=== PATIENT | male | born 1965 | race African-American/Black ===

== ENCOUNTER 2016-10-14 17:54 | Inpatient (IN) ==
[2016-10-14] MEDS ORDERED: Ipratropium/Albuterol Neb 3 ML IH ONE (18:00)
[2016-10-14] MEDS ORDERED: predniSONE 20 MG TABLET PO ONE (18:01)
--- NOTE | 2016-10-14 18:02 | Emergency Department Note ---
Disposition Clinical Impression: New onset of congestive heart failure, Elevated troponin Pulmonary edema Qualifiers: Chronicity: acute Qualified Code(s): J81.0 - Acute pulmonary edema Disposition: Admitted As Inpatient Condition: Fair Time of Disposition: 19:55 SOB HPI - General Chief Complaint: ED Dizziness Stated Complaint: dizzy Time Seen by Provider: 10/14/16 17:58 Source: patient Mode of arrival: ambulatory Limitations: no limitations Nursing Notes Reviewed: Yes Vital Signs Reviewed: Yes - History of Present Illness Patient is a 51-year-old male with reported no past medical history. He presents today due to shortness of breath and lightheadedness. Patient was here in the hospital, walking and felt lightheaded. He states that he did not lose consciousness, did not fall or sustain any injuries. He denies any chest pain but admits to shortness of breath. Denies any nausea, vomiting, fevers, abdominal pain. Denies any history of COPD or CHF. He denies being on any prescription medications. States that he hasn't been to the doctor in 4-5 years. - Related Data Home Medications Medication Instructions Recorded Confirmed Guaifenesin/Ephedrine HCl 1 each PO Q4H 10/14/16 10/14/16 [Primatene Asthma Tablet] Allergies Allergy/AdvReac Type Severity Reaction Status Date / Time No Known Allergies Allergy Verified 10/14/16 17:56 Constitutional: Denies: fever Cardiovascular: Reports: dyspnea on exertion. Denies: chest pain, palpitations Respiratory: Reports: dyspnea, wheezes. Denies: cough, hemoptysis Gastrointestinal: Denies: abdominal pain, nausea, vomiting, diarrhea Genitourinary: Denies: urgency, dysuria Integumentary: Denies: rash Past Medical History - Past Medical History Attestation: Yes The following information was validated with the patient. Medical history: Reports: asthma - Social History Smoking Status: Current every day smoker Alcohol use: Reports: none Drug use: Reports: none Physical Exam - General Limitations: no limitations General appearance: alert, in no apparent distress - Head Head exam: atraumatic, normocephalic, normal inspection - Eye Eye exam: Present: normal appearance, PERRL, EOMI - ENT ENT exam: normal exam, normal oropharynx, mucous membranes moist - Neck Neck exam: Present: full ROM, trachea midline, other (JVD) - Chest Chest inspection: Present: normal inspection, symmetric chest wall rise - Respiratory Respiratory exam: Present: wheezes (Mild wheeze in bilateral lower lobes, decreased aeration in right lower lobe) - Cardiovascular Cardiovascular exam: Present: normal rhythm, tachycardia, normal heart sounds - Extremities Exam Extremities exam: Present: normal inspection, full ROM. Absent: tenderness, pedal edema - Neurological Exam Neurological exam: Present: alert, oriented X3 - Psychiatric Psychiatric exam: Present: normal affect, normal mood - Skin Skin exam: Present: warm, dry, intact, normal color Course Course Narrative: Patient was tachycardic, hypertensive on presentation. Oxygen saturation was 95 % on room air. He had wheezing in bilateral lower lobes with decreased aeration in right lower lobe. 19:48 Chest x-ray shows likely developing pulmonary edema. Troponin elevated at 0.09. Aspirin given. BNP elevated at 1300. We will start the patient on nitroglycerrin drip at 50 mcg/min and give sublingual nitroglycerin. Discussed results with the patient and he was agreeable with admission. Consent for new onset CHF. Chest X-Ray 10/14/16 17:59 IMPRESSION: In this patient with cardiomegaly, there is asymmetric perihilar airspace change on the right. This could represent developing pulmonary edema. Underlying pneumonitis considered less likely No other significant findings. D/ / Ronen Bello MD / Ronen Bello MD Interpreting Provider: Ronen Bello MD Vital Signs Temperature 98.3 F 10/14/16 17:55 Pulse Rate 105 10/14/16 17:55 Respiratory Rate 18 10/14/16 17:55 Blood Pressure 158/117 10/14/16 17:55 O2 Sat by Pulse Oximetry 95 10/14/16 17:55 Temperature 98.3 F 10/14/16 17:55 Pulse Rate 110 10/14/16 22:02 Respiratory Rate 18 10/14/16 22:02 Blood Pressure 153/116 10/14/16 22:02 O2 Sat by Pulse Oximetry 94 10/14/16 22:02 Oxygen Delivery Oxygen Delivery Nasal Cannula Shortness of Breath/Dyspnea - [facility] Narrative Medical decision making narrative: Patient was tachycardic, hypertensive on presentation. Oxygen saturation was 95 % on room air. He had wheezing in bilateral lower lobes with decreased aeration in right lower lobe. 19:48 Chest x-ray shows likely developing pulmonary edema. Troponin elevated at 0.09. Aspirin given. BNP elevated at 1300. We will start the patient on nitroglycerrin drip at 50 mcg/min and give sublingual nitroglycerin. Discussed results with the patient and he was agreeable with admission. Consent for new onset CHF. - Medical Records Medical records reviewed: Yes I reviewed the patient's medical records. - Lab Data Lab results reviewed: Yes I reviewed the patient's lab results. Result diagrams: 10/14/16 18:00 10/14/16 18:00 Lab Results 10/14/16 10/14/16 10/14/16 Range/Units 18:00 18:00 18:00 WBC 9.6 (4.3-11.1) K/mcL RBC 4.73 (4.19-5.50) M/mcL Hgb 12.7 L (12.9-16.9) g/dL Hct 40.7 (37.5-50.1) % MCV 86.0 (83.0-100.0) fL MCH 26.8 L (28.0-33.3) pg MCHC 31.2 L (31.6-35.5) g/dL RDW 14.5 (11.5-14.5) % Plt Count 336 (140-400) K/mcL MPV 9.4 (9.4-12.4) fL Immature Gran % 0.9 (0-4) % Seg Neutrophils % 61.0 % Lymphocytes % 28.8 % Monocytes % 7.7 % Eosinophils % 0.8 % Basophils % 0.8 % Neutrophils # 5.9 (1.6-8.9) K/mcL Lymphocytes # 2.8 (0.6-4.6) K/mcL Monocytes # 0.7 (0.0-1.3) K/mcL Eosinophils # 0.1 (0.0-0.6) K/mcL Basophils # 0.1 (0.0-0.2) K/mcL Nucleated RBCs/100 WBC 0.2 H (0) /100 WBC Sodium 135 L (136-145) mEq/L Potassium 4.3 (3.5-4.5) mEq/L Chloride 101 (98-109) mEq/L Carbon Dioxide 15 L (19-29) mEq/L BUN 21 (8-26) mg/dL Creatinine 1.16 (0.72-1.25) mg/dL Est GFR ( Amer) > 60 (> 60) Est GFR (Non-Af Amer) > 60 (> 60) BUN/Creatinine Ratio 18 (6-26) Glucose 61 L (70-99) mg/dL POC Glucose (58-89) Calculated Osmolality 281 (280-300) Calcium 8.9 (8.6-10.8) mg/dL Troponin I 0.07 H* (0-0.03) ng/mL B-Natriuretic Peptide (0-100) pg/mL 10/14/16 10/14/16 Range/Units 18:00 18:11 WBC (4.3-11.1) K/mcL RBC (4.19-5.50) M/mcL Hgb (12.9-16.9) g/dL Hct (37.5-50.1) % MCV (83.0-100.0) fL MCH (28.0-33.3) pg MCHC (31.6-35.5) g/dL RDW (11.5-14.5) % Plt Count (140-400) K/mcL MPV (9.4-12.4) fL Immature Gran % (0-4) % Seg Neutrophils % % Lymphocytes % % Monocytes % % Eosinophils % % Basophils % % Neutrophils # (1.6-8.9) K/mcL Lymphocytes # (0.6-4.6) K/mcL Monocytes # (0.0-1.3) K/mcL Eosinophils # (0.0-0.6) K/mcL Basophils # (0.0-0.2) K/mcL Nucleated RBCs/100 WBC (0) /100 WBC Sodium (136-145) mEq/L Potassium (3.5-4.5) mEq/L Chloride (98-109) mEq/L Carbon Dioxide (19-29) mEq/L BUN (8-26) mg/dL Creatinine (0.72-1.25) mg/dL Est GFR ( Amer) (> 60) Est GFR (Non-Af Amer) (> 60) BUN/Creatinine Ratio (6-26) Glucose (70-99) mg/dL POC Glucose 80 (58-89) Calculated Osmolality (280-300) Calcium (8.6-10.8) mg/dL Troponin I (0-0.03) ng/mL B-Natriuretic Peptide 1393 H (0-100) pg/mL - Radiology Data Radiology results reviewed: Yes I reviewed the patient's radiology results. Chest X-Ray 10/14/16 17:59 IMPRESSION: In this patient with cardiomegaly, there is asymmetric perihilar airspace change on the right. This could represent developing pulmonary edema. Underlying pneumonitis considered less likely No other significant findings. D/ / Ronen Bello MD / Ronen Bello MD Interpreting Provider: Ronen Bello MD - EKG Data EKG attestation: Yes I reviewed and interpreted this EKG. EKG results narrative: 10/14/2016 at 17:48. Sinus tachycardia. Rate 114. UT interval 173. QRS 102. QTC 413. Normal axis. No acute ST elevation or depression. No previous EKG for comparison. S.B.A.R. - Eliza.Joanna Situation: Demographics, MOA Background: Presenting Complaint, Relevant PMH, Meds, & Allergies Assessment: Vital Signs, Course and respsone to treatment, Exam Concerns, Patient/Family Expectation, Pertinant Lab Results, Outstanding Labs Recommendation: Barrier(s) to disposition, Recommendation based on pending studies, treatments, or consults S.[email or web address].[email or web address] Report Given to: Dr. Rubin Whiting Repor Time: 20:36 Attestation Statement - Attestation Attestation: I examined this patient and my medical decision-making was reviewed with the Resident Physician. I agree with the documented findings, disposition and treatment plan as described except to the extent set forth below. Hypertensive with rales and wheezing t/o both lungs, significant JVD on exam, no peripheral edema. C/O orthopnea and PERRY, no CP. Pulmonary congestion on CXR with elevated BNP, dx new-onset HF, most likely hypertensive in origin. Nitro titrated for afterload reduction and BP control, DBP down to 100 on 100 mcg/ min. Diuresed after afterload reduction per request of hospitalist.
[2016-10-14 18:16] LABS: Basophils # 0.1 K/mcL (0.0-0.2); Basophils % 0.8 %; Eosinophils # 0.1 K/mcL (0.0-0.6); Eosinophils % 0.8 %; Hematocrit 40.7 % (37.5-50.1); Hemoglobin 12.7 g/dL (12.9-16.9); Immature Granulocytes % 0.9 % (0-4); Lymphocytes # 2.8 K/mcL (0.6-4.6); Lymphocytes % 28.8 %; Mean Corpuscular HGB Conc 31.2 g/dL (31.6-35.5); Mean Corpuscular Hemoglobin 26.8 pg (28.0-33.3); Mean Platelet Volume 9.4 fL (9.4-12.4); Monocytes # 0.7 K/mcL (0.0-1.3); Monocytes % 7.7 %; Neutrophils # 5.9 K/mcL (1.6-8.9); Nucleated Red Blood Cells 0.2 /100 WBC (0); Platelet Count 336 K/mcL (140-400); Red Blood Count 4.73 M/mcL (4.19-5.50); Red Cell Distribution Width 14.5 % (11.5-14.5)
[2016-10-14 18:29] LABS: BUN/Creatinine Ratio 18 (6-26); Blood Urea Nitrogen 21 mg/dL (8-26); Calcium 8.9 mg/dL (8.6-10.8); Carbon Dioxide 15 mEq/L (19-29); Chloride 101 mEq/L (98-109); Glucose 61 mg/dL (70-99); Osmolality,Calculated 281 (280-300); Potassium 4.3 mEq/L (3.5-4.5); Sodium 135 mEq/L (136-145); eGFR For African Americans > 60 (> 60); eGFR For Non-African Americans > 60 (> 60)
[2016-10-14] MEDS ORDERED: Nitroglycerin 0.4 MG TAB.SUBL SL PRN (19:43)
[2016-10-14] MEDS ORDERED: Nitroglycerin 25 MG/250 ML INFUS..BTL IVC SCH (19:45)
[2016-10-14] MEDS ORDERED: Furosemide 40 MG/4 ML VIAL IVP ONE (20:18)
[2016-10-14] MEDS: Nitroglycerin 25 MG/250 ML INFUS..BTL IVC SCH (20:25)
[2016-10-14] MEDS ORDERED: Aspirin 81 MG TAB.CHEW PO ONE (22:52)
[2016-10-14] MEDS ORDERED: *HR* Morphine 2 MG/ML SYRINGE IVP PRN (22:52)
[2016-10-14] MEDS ORDERED: Naloxone 0.4 MG/ML INJ IVP PRN (22:52)
[2016-10-14] MEDS ORDERED: Benzonatate 100 MG CAPSULE PO PRN (22:52)
[2016-10-14] MEDS ORDERED: *HR* Metoprolol 5 MG/5 ML VIAL IVP PRN (22:52)
[2016-10-14] MEDS ORDERED: Acetaminophen 325 MG TABLET PO PRN (22:52)
[2016-10-14] MEDS ORDERED: Albuterol 2.5 MG/3 ML NEBULIZER IH PRN (22:52)
[2016-10-14] MEDS ORDERED: *HR* Promethazine 25 MG/ML VIAL IVP PRN (22:52)
[2016-10-14] MEDS ORDERED: *HR* OxyCODONE Immed Rel 5 MG TABLET PO PRN (22:52)
--- NOTE | 2016-10-14 23:15 | Internal Med History&Physical ---
Date of Encounter: 10/14/16 Time of Encounter: 23:00 Assessment and Plan (1) Acute respiratory failure with hypoxia Current visit: Yes Status: Acute . (2) Acute pulmonary edema with congestive heart failure Current visit: Yes Status: Acute (3) Congestive heart failure, unspecified Current visit: Yes Status: Acute . Qualifiers: Congestive heart failure type: unspecified congestive heart failure type Congestive heart failure chronicity: acute Qualified Code(s): I50.9 - Heart failure, unspecified (4) Unspecified hypertensive heart disease with heart failure Current visit: Yes Status: Acute . (5) Hypertensive urgency Current visit: Yes Status: Acute . (6) SIRS without infection with organ dysfunction Current visit: Yes Status: Acute . (7) Elevated troponin I measurement Current visit: Yes Status: Acute . (8) Non-ST elevation myocardial infarction (NSTEMI) due to mismatch of myocardial oxygen supply and demand Current visit: Yes Status: Acute . (9) Nicotine dependence with nicotine-induced disorder Current visit: Yes Status: Acute . Qualifiers: Nicotine product type: cigarettes Qualified Code(s): F17.219 - Nicotine dependence, cigarettes, with unspecified nicotine-induced disorders Internal Medicine - H&P: HPI Chief complaint: Dizziness. Difficulty breathing. Admitted From: Emergency Dept Plans for Post Hospital Care: Home History of present illness: Mr. Mccray is a 51 year old male is admitted to [facility] through the emergency department he presented with complaints of intractable dizziness and shortness of breath. The patient presents with no specified past medical history. He was in the hospital visiting another individual when he began to feel light headed if he were about to lose consciousness. He did not lose consciousness but he did and had to sit down to collect himself. He denied any associated chest pain but admitted that the shortness of breath was present with and without activity. Dyspnea indeed seem worse with exertion. Wheezes were noted. Denied any nausea vomiting fevers chills abdominal pain. Denied any diagnoses given out of history of COPD or CHF. Denies any ongoing prescriptions. Reports some 5 or more years since his last physical examination and physician visit. He does acknowledge a history of asthma. Indeed when he began to feel short of air he purchased [id number] Primatene asthma tablets (guaifenesin/ephedrine) to address this but this did not help but seemed to worsen symptoms. He does acknowledge long smoking history denies alcohol or recreational drug Use or dependency. Findings in the ED: Temperature 98.3 pulse 110 respirations 18 BP 158/117. O2 saturation 95% at 2 L per nasal cannula. WBC 9.6 hemoglobin 12.7 platelets 336,000. MCH 26.8 MCHC 31.2. Differential normal. Metabolic panel normal except sodium 135. Carbon dioxide 15. Glucose 61 with osmolality 281. BUN 21 creatinine 1.16. Troponin 0.07. BNP 1393. Portable chest x-ray demonstrated cardiomegaly. Asymmetric , bilateral perihilar airspace changes on the right greater than left. Findings could represent developing pulmonary edema. Underlying pneumonitis considered less likely. No other significant findings. EKG sinus tachycardia. No ischemic changes. Preliminary impression suggests acute hypertensive urgency/emergencyin patient presenting with evidence of pathologic cardiomegaly likely secondary to hypertensive heart disease and presenting acute heart failure. Demand ischemia with elevated troponin and BNP elevations are apparent. Suspect underlying CAD. R/O ACS/UA/PE/Aortic dissection- aneurysm. Resting hypoxemia consistent with acute on chronic hypoxic respiratory failure in the setting. Suspect underlying COPD with acute exacerbation. Systemic inflammatory response syndrome criteria met at the time of admission. The patient presents risk for further clinical decline. Workup and treatment will proceed comprehensively. The patient was visited and interviewed and examined. Cumulative laboratory and radiographic data base will be considered and discussed. Pertinent ancillary medical records including ECW and PCI documentation when available was reviewed and considered. Given the patient's presenting concerns, past medical history, clinical findings and symptoms, he is admitted at this time will undergo further evaluation and disposition. Orders were written as per Computerized physician work order detailer system.......................................................................... .................... Consultative opinions will be sought as clinical circumstances justify. Pain management needs will be addressed. Intravenous nitroglycerin drip initiated in the ED for afterload reduction and blood pressure control. Gentle diuresis. Total fluid restriction per 24hrs. ANNAMARIA diet restriction. Laboratory /radiographic data base will be updated as appropriate. Studies include: pt/inr, aptt, ddimer, cpk, UA, UDS, cardiac injury panel, BNP, metabolic and hematologic panel, magnesium, phosphorus, ionized calcium, thyroid panel, lipid profile, A1c, C-peptide, CRP, sedimentation rate, respiratory infection profile, respiratory virus panel, blood gas, lactic acid, serologies, etc. Precautions: Aspiration, fall, delirium protocol/surveillance initiated. Telemetry with continuous hemodynamic monitoring and pulse oximetry initiated. Orthostatic vital signs. Empiric antibiotic coverage: Intravenous Levaquin pending culture data. Special studies: CT/CTA chest, chest x-ray, telemetry, EKG, 2D echo. Pulmonary toilet: Incentive spirometry, aerosol bronchodilator, mucolytic, antitussive, supplemental oxygen. Corticosteroid therapy. CPAP/BiPAP supplemental oxygen delivery. Aerosol Mucomyst therapy. Fluid and electrolyte repletion efforts will proceed. Careful attention to fluid balance and renal recovery will be emphasized. Avoidance of nephrotoxic exposure and adverse drug drug interaction in the setting of impaired renal function will be monitored closely. Acute coronary syndrome protocol/surveillance initiated. Acute Heart failure protocols/surveillance initiated. Therapeutic Lovenox 1 mg/kg every 12 hours subcutaneous. DVT and PUD prophylaxis initiated: PPI therapy, intermittent pneumatic cuffs. Early ambulation will be encouraged. Immunization updates recommended. Influenza and pneumococcal vaccinations as part of ongoing preventative healthcare recommendations strongly recommended. Smoking cessation counseling briefly addressed. Patient accepts nicotine substitution during this admission.. Advanced care directive discussion briefly addressed. Patient does not declare any healthcare restrictions at this time. Cardiovascular risk appraisal and cardiovascular risk reduction efforts will be emphasized. Physical /occupational therapy may be counseled to evaluate patient's functional capacity and progressive mobility if circumstances justify. Nutrition/dietary education- counseling may be considered as circumstances justify. Outpatient medication schedules will be reviewed, confirmed and facilitated as appropriate. Reconciliation of home treatments including adjustments, substitutions and reintroduction into the treatment regimen will address necessary maintenance therapies for chronic pre-existing medical conditions. Plan of care has been reviewed and discussed in detail with the patient. Questions addressed. Hospital course dictated by clinical findings, treatment response and potential consultative interventions. Patient is a risk for further acute clinical decline due to his findings, chief complaints and apparent comorbidities. Condition is serious. Prognosis is guarded. CODE STATUS is full. Past Med Surg Social Fam HX - Past Medical History Source: patient Medical history: asthma, other Psychiatric history: other - Past Surgical History Surgical History: other - Social History Smoking Status: Current every day smoker Alcohol use: none Drug use: none Occupational status: employed Current living situation: Home, With Family Activity Level: Independent ambulation, Mostly sedentary Recent Out of Country Travel Within the Last 8 Weeks: No Exposure or Possible Exposure to Illness During Travel: No - Family History Father Name: charissa mccray Age at : 67 Cause of : heart trouble Hx Family Cardiac Disorders: Yes (CHF, open heart surgery) Hx Family Endocrine Disorder: Yes (DM) Internal Medicine - H&P: Meds Guaifenesin/Ephedrine HCl [Primatene Asthma Tablet] 1 each PO Q4H 10/14/16 [ History] Allergies No Known Allergies Allergy (Verified 10/14/16 17:56) All Systems PM: A 10-system review of systems was performed and is negative for pertinent findings except as documented above in the HPI. Allergies Allergy/AdvReac Type Severity Reaction Status Date / Time No Known Allergies Allergy Verified 10/14/16 17:56 Patient Problems (Last Updated 10/14/16 @ 23:17 by Navneet oHoks MD) Acute pulmonary edema with congestive heart failure (Acute Medical) I50.1 Acute respiratory failure with hypoxia (Acute Medical) J96.01 Congestive heart failure, unspecified (Acute Medical) I50.9 Elevated troponin (Acute Medical) R74.8 Elevated troponin I measurement (Acute Medical) R74.8 Hypertensive urgency (Acute Medical) I16.0 New onset of congestive heart failure (Acute Medical) I50.9 Nicotine dependence with nicotine-induced disorder (Acute Medical) F17.209 Non-ST elevation myocardial infarction (NSTEMI) due to mismatch of myocardial oxygen supply and demand (Acute Medical) I21.4 Pulmonary edema (Acute Medical) J81.1 SIRS without infection with organ dysfunction (Acute Medical) R65.11 Unspecified hypertensive heart disease with heart failure (Acute Medical) I11.0 - Constitutional Constitutional: as per HPI, fatigue, malaise, other, no chills, no fever(s), no night sweats - EENT Eyes: as per HPI, no change in vision, no discharge, no pain, no photophobia Ears: as per HPI, no ear discharge, no ear pain, no tinnitus Nose, mouth and throat: as per HPI, no dysphagia, no nasal discharge, no neck pain, no sore throat - Cardiovascular Cardiovascular ROS IM: as per HPI, dyspnea, dyspnea on exertion, lightheadedness , other, no chest pain, no diaphoresis, no palpitations, no syncope - Respiratory Respiratory: as per HPI, cough, dyspnea, dyspnea on exertion, wheezing, other, no hemoptysis, no excessive phlegm production - Gastrointestinal Gastrointestinal: as per HPI, no abdominal pain, no diarrhea, no hematemesis, no hematochezia, no melena, no nausea, no vomiting - Genitourinary Genitourinary ROS male: as per HPI - Musculoskeletal Musculoskeletal ROS IM: as per HPI, no numbness, no tingling - Integumentary Integumentary IM: as per HPI, no rash, no unusual bruising - Neurological Neurological ROS: as per HPI, no confusion, no convulsions, no focal weakness, no numbness, no tingling, no tremor(s) - Psychiatric Psychiatric: as per HPI - Endocrine Endocrine IM: as per HPI - Hematologic/Lymphatic Hematologic/Lymphatic: as per HPI, no easy bruising - Allergic/Immunologic Allergic/Immunologic: as per HPI - Constitutional Vitals: Temp Pulse Resp BP Pulse Ox 98.3 F 109 20 151/111 96 10/14/16 17:55 10/14/16 22:54 10/14/16 22:54 10/14/16 22:54 10/14/16 22:54 Vital Signs Temp Pulse Resp BP Pulse Ox 10/14/16 22:54 109 20 151/111 96 10/14/16 22:39 15 154/117 10/14/16 22:19 108 22 147/108 96 10/14/16 22:02 110 18 153/116 94 10/14/16 21:37 109 18 153/120 97 10/14/16 20:55 107 18 139/103 97 10/14/16 20:45 109 18 145/120 97 10/14/16 20:04 108 18 153/112 97 10/14/16 18:57 109 18 162/122 95 10/14/16 18:10 18 100 10/14/16 17:55 98.3 F 105 18 158/117 95 Intake and Output 10/14/16 10/14/16 10/14/16 07:59 15:59 23:59 Intake Total 0 / 0 Balance 0 / 0 Intake: IV Fluids 0 / 0 Nitroglycerin 25 mg In 0 / 0 250 ml @ 50 MCG/MIN 30 mls/hr IVC .Q8H20M [facility] Rx #:[id number] Other: Weight 72.575 kg Blood Glucose* 80 Patient Weight 10/14/16 23:59 Weight 72.575 kg General appearance: Present: mild distress, A&O X 3, answers questions appropriately - Head Head exam: Present: atraumatic, normocephalic - Eye Eye exam: Present: EOMI, PERRL, conjuntiva pink, sclera anicteric Pupils: Present: normal accommodation, PERRL - ENT ENT exam: Present: mucous membranes moist, normal oropharynx - Neck Neck exam general surgery: Present: full ROM, supple, trachea midline. Absent: lymphadenopathy - Respiratory Respiratory exam: Present: chest wall tenderness, decreased breath sounds, prolonged expiratory phase, rhonchi, wheezes. Absent: accessory muscle use, CTAB, rales, stridor - Cardiovascular Cardiovascular exam: Present: distant heart sounds, RRR, +S1, +S2, tachycardia. Absent: diastolic murmur, gallop, rubs, systolic murmur - GI/Abdominal GI/Abdominal exam: Present: normal bowel sounds, soft, no peritoneal signs. Absent: distended, tenderness - Extremities Exam Extremities exam: Present: full ROM, warm, radial pulses palpable and symetrical. Absent: calf tenderness, cyanotic, pedal edema - Neurological Exam Neurological exam: Present: alert, CN II-XII intact, oriented X3, no focal deficits. Absent: pronater drift, facial droop, speech deficit - Psychiatric Psychiatric exam: Present: normal affect, normal mood - Skin Skin exam: Present: dry, intact, warm. Absent: petechiae, rash, urticaria, vesicles Internal Med - H&P Results - Labs CBC & Chem 7: 10/14/16 18:00 10/15/16 07:18 Labs: Short CBC 10/14/16 Range/Units 18:00 WBC 9.6 (4.3-11.1) K/mcL Hgb 12.7 L (12.9-16.9) g/dL Hct 40.7 (37.5-50.1) % Plt Count 336 (140-400) K/mcL Neutrophils # 5.9 (1.6-8.9) K/mcL BMP 10/14/16 Range/Units 18:00 Sodium 135 L (136-145) mEq/L Potassium 4.3 (3.5-4.5) mEq/L Chloride 101 (98-109) mEq/L Carbon Dioxide 15 L (19-29) mEq/L BUN 21 (8-26) mg/dL Creatinine 1.16 (0.72-1.25) mg/dL Glucose 61 L (70-99) mg/dL Calcium 8.9 (8.6-10.8) mg/dL Cardiac Enzymes 10/14/16 Range/Units 18:00 Troponin I 0.07 H* (0-0.03) ng/mL Abnormal lab results Hgb 12.7 g/dL (12.9-16.9) L 10/14/16 18:00 MCH 26.8 pg (28.0-33.3) L 10/14/16 18:00 MCHC 31.2 g/dL (31.6-35.5) L 10/14/16 18:00 Nucleated RBCs/100 WBC 0.2 /100 WBC (0) H 10/14/16 18:00 Sodium 135 mEq/L (136-145) L 10/14/16 18:00 Carbon Dioxide 15 mEq/L (19-29) L 10/14/16 18:00 Glucose 61 mg/dL (70-99) L 10/14/16 18:00 Troponin I 0.07 ng/mL (0-0.03) H* 10/14/16 18:00 B-Natriuretic Peptide 1393 pg/mL (0-100) H 10/14/16 18:00 Laboratory Results WBC 9.6 K/mcL (4.3-11.1) 10/14/16 18:00 RBC 4.73 M/mcL (4.19-5.50) 10/14/16 18:00 Hgb 12.7 g/dL (12.9-16.9) L 10/14/16 18:00 Hct 40.7 % (37.5-50.1) 10/14/16 18:00 MCV 86.0 fL (83.0-100.0) 10/14/16 18:00 MCH 26.8 pg (28.0-33.3) L 10/14/16 18:00 MCHC 31.2 g/dL (31.6-35.5) L 10/14/16 18:00 RDW 14.5 % (11.5-14.5) 10/14/16 18:00 Plt Count 336 K/mcL (140-400) 10/14/16 18:00 MPV 9.4 fL (9.4-12.4) 10/14/16 18:00 Immature Gran % 0.9 % (0-4) 10/14/16 18:00 Seg Neutrophils % 61.0 % 10/14/16 18:00 Lymphocytes % 28.8 % 10/14/16 18:00 Monocytes % 7.7 % 10/14/16 18:00 Eosinophils % 0.8 % 10/14/16 18:00 Basophils % 0.8 % 10/14/16 18:00 Neutrophils # 5.9 K/mcL (1.6-8.9) 10/14/16 18:00 Lymphocytes # 2.8 K/mcL (0.6-4.6) 10/14/16 18:00 Monocytes # 0.7 K/mcL (0.0-1.3) 10/14/16 18:00 Eosinophils # 0.1 K/mcL (0.0-0.6) 10/14/16 18:00 Basophils # 0.1 K/mcL (0.0-0.2) 10/14/16 18:00 Nucleated RBCs/100 WBC 0.2 /100 WBC (0) H 10/14/16 18:00 Sodium 135 mEq/L (136-145) L 10/14/16 18:00 Potassium 4.3 mEq/L (3.5-4.5) 10/14/16 18:00 Chloride 101 mEq/L (98-109) 10/14/16 18:00 Carbon Dioxide 15 mEq/L (19-29) L 10/14/16 18:00 BUN 21 mg/dL (8-26) 10/14/16 18:00 Creatinine 1.16 mg/dL (0.72-1.25) 10/14/16 18:00 Est GFR ( Amer) > 60 (> 60) 10/14/16 18:00 Est GFR (Non-Af Amer) > 60 (> 60) 10/14/16 18:00 BUN/Creatinine Ratio 18 (6-26) 10/14/16 18:00 Glucose 61 mg/dL (70-99) L 10/14/16 18:00 POC Glucose 80 (58-89) 10/14/16 18:11 Calculated Osmolality 281 (280-300) 10/14/16 18:00 Calcium 8.9 mg/dL (8.6-10.8) 10/14/16 18:00 Troponin I 0.07 ng/mL (0-0.03) H* 10/14/16 18:00 B-Natriuretic Peptide 1393 pg/mL (0-100) H 10/14/16 18:00 Impressions Chest X-Ray 10/14/16 17:59 IMPRESSION: In this patient with cardiomegaly, there is asymmetric perihilar airspace change on the right. This could represent developing pulmonary edema. Underlying pneumonitis considered less likely No other significant findings. D/ / Ronen Bello MD / Ronen Bello MD Interpreting Provider: Ronen Bello MD - Attending Attestation Vital Signs Temp Pulse Resp BP Pulse Ox 10/14/16 22:54 109 20 151/111 96 10/14/16 22:39 15 154/117 10/14/16 22:19 108 22 147/108 96 10/14/16 22:02 110 18 153/116 94 10/14/16 21:37 109 18 153/120 97 10/14/16 20:55 107 18 139/103 97 10/14/16 20:45 109 18 145/120 97 10/14/16 20:04 108 18 153/112 97 10/14/16 18:57 109 18 162/122 95 10/14/16 18:10 18 100 10/14/16 17:55 98.3 F 105 18 158/117 95 Allergies No Known Allergies Allergy (Verified 10/14/16 17:56) Home Medications Medication Instructions Recorded Confirmed Type Guaifenesin/Ephedrine HCl 1 each PO Q4H 10/14/16 10/14/16 History [Primatene Asthma Tablet] Medications Acetaminophen (Tylenol) 650 mg PO Q6HR PRN PRN Reason: Mild Pain (1-3) Stop: 04/15/17 22:53 Albuterol Sulfate (Proventil Neb) 2.5 mg IH Q2H PRN PRN Reason: Shortness Of Breath/Wheezing Stop: 04/15/17 22:53 Albuterol/Ipratropium (Duoneb) 3 ml IH QIDR [facility] Stop: 04/15/17 23:01 Aspirin (Aspirin) 324 mg PO ONCE ONE Stop: 10/14/16 22:53 Aspirin (Aspirin) 81 mg PO DAILY [facility] Stop: 04/16/17 09:01 Atorvastatin Calcium (Lipitor) 40 mg PO HS [facility] Stop: 04/16/17 21:01 Benzonatate (Tessalon) 200 mg PO TID PRN PRN Reason: Cough Stop: 04/15/17 22:53 Bumetanide (Bumex) 1 mg IVP ONCE ONE Stop: 10/15/16 01:01 Docusate Sodium (Colace) 100 mg PO BID PRN PRN Reason: Constipation Stop: 04/15/17 22:53 Enoxaparin Sodium (Lovenox *Pharmacy Wt Based*) 70 mg 1 mg/kg (70 mg) SQ Q12HCO [facility] PRN Reason: Protocol Stop: 04/15/17 23:01 Guaifenesin (Mucinex) 600 mg PO BID [facility] Stop: 04/16/17 09:01 Nitroglycerin (Nitroglycerin) 25 mg in 250 mls @ 30 mls/hr IVC .Q8H20M [facility] PRN Reason: 50 MCG/MIN Stop: 04/15/17 19:46 Last Infusion: 10/14/16 22:53 Dose: 130 mcg/min, 78 mls/hr Losartan Potassium (Cozaar) 25 mg PO DAILY [facility] Stop: 04/16/17 09:01 Metoprolol Tartrate (Lopressor) 25 mg PO BID [facility] Stop: 04/15/17 23:01 Metoprolol Tartrate (Lopressor) 5 mg IVP Q6HR PRN PRN Reason: SEE COMMENTS Stop: 04/15/17 22:53 Morphine Sulfate (Morphine Sulfate) 2 mg IVP Q4HR PRN PRN Reason: Severe Pain (7-10) Stop: 04/15/17 22:53 Naloxone HCl (Narcan) 0.4 mg IVP Q2MIN PRN PRN Reason: Opioid Reversal Stop: 04/15/17 22:53 Nicotine (Nicoderm) 21 mg TD DAILY [facility] PRN Reason: Protocol Stop: 04/15/17 23:01 Nitroglycerin (Nitroglycerin) 0.4 mg SL Q5MIN PRN PRN Reason: Chest Pain Stop: 04/15/17 19:44 Last Admin: 10/14/16 19:51 Dose: 0.4 mg Omeprazole (Prilosec) 20 mg PO DAILY@0630 [facility] PRN Reason: Protocol Stop: 04/16/17 06:31 Oxycodone HCl (Roxicodone) 5 mg PO Q6HR PRN PRN Reason: Moderate Pain (4-6) Stop: 04/15/17 22:53 Prednisone (Prednisone) 40 mg PO DAILY [facility] Stop: 04/16/17 09:01 Promethazine HCl (Phenergan) 12.5 mg IVP Q6HR PRN PRN Reason: Nausea And Vomiting Stop: 04/15/17 22:53 Discontinued Medications Albuterol/Ipratropium (Duoneb) 9 ml IH ONCE ONE PRN Reason: Protocol Stop: 10/14/16 18:01 Last Admin: 10/14/16 18:10 Dose: 9 ml Furosemide (Lasix) 40 mg IVP ONCE ONE Stop: 10/14/16 20:19 Last Admin: 10/14/16 20:25 Dose: 40 mg Nitroglycerin (Nitroglycerin) 25 mg in 250 mls @ 30 mls/hr IVC .Q8H20M [facility] PRN Reason: 50 MCG/MIN Stop: 04/15/17 19:46 Last Admin: 10/14/16 19:51 Dose: 50 mcg/min, 30 mls/hr Prednisone (Prednisone) 60 mg PO ONCE ONE Stop: 10/14/16 18:02 Last Admin: 10/14/16 18:21 Dose: 60 mg I & O 10/11/16 10/12/16 10/13/16 10/14/16 23:59 23:59 23:59 23:59 Intake Total 0 / 0 Balance 0 / 0 Weight 72.575 kg Intake: IV Fluids 0 / 0 Nitroglycerin 25 mg In 0 / 0 250 ml @ 50 MCG/MIN 30 mls/hr IVC .Q8H20M [facility] Rx #:[id number] Other: Blood Glucose* 80 Nursing Notes 10/14/16 21:58 Nurse Note by Renee Medeiros monitor room notified this RN of possible run of vtach. Dr Henderson reviewed strip and determined the run to be artifact. Pt assessed and vital updated, denies any changes Initialized on 10/14/16 21:58 - END OF NOTE 10/14/16 20:04 Transport Report by Alex Vincent Date: 10/14/16 Transport Method: Portable No Known Allergies Allergy (Verified 10/14/16 17:56) Resuscitation Status 10/14/16 17:59 ECG 12 lead ECG [ECG] Stat Mode Of Transportation: Portable Reason For Exam: dyspnea Exam Performed At:: [facility] Oxygen: Mental Status: Fall Risk: Isolation: Nurse Required for Transport: No ___ Yes Limb Restrictions: No ___ Yes Behavioral issue/Risk for Elopement: No ___ Yes Telemetry Room Notification: Destination: MRI XRAY STRESS ULTRASOUND CT DIALYSIS ENDO OTHER: Depart Time: Nurse: Transporter: Arrive Time: Received by: ___ Return Time: Nurse: Transporter: ] Initialized on 10/14/16 20:04 - END OF NOTE Assessments/Treatments 12 lead ECG assessment Start: 10/14/16 17: 59 Freq: NOW Status: Complete Document 10/14/16 21:12 CHENTE (Rec: 10/14/16 21:13 CHENTE [id number]) EKG Time EKG Completed 17:48 EKG performed by unknown Additional Comment completed on previous RN's shift. Critical Value Reporting Start: 10/14/16 18: 48 Freq: Status: Complete Document 10/14/16 18:49 CRB (Rec: 10/14/16 18:50 CRB [id number]) Critical Values Reporting Test(s) and Results trop 0.07 Time Results Received 18:49 Lab Results Repeated Back Yes Provider Notified Yes Time Provider Contacted 18:49 Provider Name tiesha ED Discharge Assessment Start: 10/14/16 17: 54 Freq: Status: Complete Document 10/14/16 22:39 CHENTE (Rec: 10/14/16 22:40 CHENTE [id number]) ED Discharge Assessment ED Discharge Disposition Admitted ED Condition on Discharge Fair Med Rec/Patient Pharmacy Completed? Yes Admitted to 2N Transported by EMS transport team Transported with monitor IV Pain Scale 0 Pain Scale Used Standard (1-10) Blood Pressure (mm Hg) 154/117 Heart rate 105 Respiratory Rate (breaths/min) 15 Oxygen Saturation 95 Critical Care Minutes 0 ED Dizziness Assessment Start: 10/14/16 17: 54 Freq: Status: Complete Document 10/14/16 17:54 CRB (Rec: 10/14/16 18:51 CRB [id number]) Dizziness Symptoms/Complaint Dizziness Timing Gradual Onset Description Lightheadedness Off-Balance Hx of Similar Episodes No Hx of Trauma No Severity Mild Improves With Remaining Still Worsens With Movement Associated Symptoms Denies Other Symptoms Level Of Consciousness Awake Alert Appropriate Follows Commands Patient Orientation Person Place Time Name Age Date of Day of Month Day of Week Month Year Time of Day Skin Temperature Warm Skin Moisture Dry Skin Turgor Elastic Respiratory Effort Normal for Patient Spontaneous Non-Labored Respiratory Pattern Regular Neurological Symptoms None Problems with Ambulation Gait and Balance Satisfactory Nausea/Vomiting Presence None Glucose, blood point of care measurement Start: 10/14/16 17: 54 Freq: Status: Complete Document 10/14/16 18:14 [id number] (Rec: 10/14/16 18:14 [id number]) Blood Glucose Assessment Blood Glucose* 80 Hypoglycemia Symptoms None Hyperglycemia Symptoms None RT Respiratory Medication Delivery Start: 10/14/16 18: 14 Freq: Status: Complete Document 10/14/16 18:10 [facility] (Rec: 10/14/16 18:15 [facility] [id number]) Respiratory Therapy Pre Assessment SPO2 (%) 100 Heart rate 106 Respiratory Rate (breaths/min) 18 Oxygen Delivery Method Room Air Throughout Breath Sounds Diminished Treatment Modality Nebulizer Therapy Respiratory Medications Duoneb Medication Delivery Device Mask Treatment Tolerance Good Initial Aerosol/MDI/DPI* Yes Post RT Medication Delivery Post Heart rate 100 Post Respiratory Rate (breaths/min) 18 Throughout Post Breath Sounds Diminished Treatment Outcome No Change Comment no complications Supplemental oxygen titration Start: 10/14/16 17: 59 Freq: .ONCE Status: Active Document 10/14/16 20:04 CRB (Rec: 10/14/16 20:06 CRB [id number]) Oxygen Adminstration Oxygen Saturation (%) 97 Oxygen Delivery Method [place] Nasal Cannula Flow Rate 2 Triage Start: 10/14/16 17: 54 Freq: Status: Complete Document 10/14/16 17:55 CRB (Rec: 10/14/16 17:57 CRB [id number]) Triage Chief Complaint triage ED Dizziness Patient Stated Complaint dizzy CLEVE 2 Onset (ago) Just [employer]ITTER [employer]ER General Appearance alert in no apparent distress Source patient Limitations no limitations Ebola Risk: Travel/Contact With Anyone No From Affected Area/s Temperature (97.6 F-99.6 F) 98.3 F Temperature Source Oral Pulse Rate (beats/min) 105 Respiratory Rate (breaths/min) 18 Blood Pressure (mm Hg) 158/117 O2 Sat by Pulse Oximetry (%) 95 Oxygen Delivery Room Air Height 1.7 m Weight 72.575 kg Weight Measurement Method Estimated by Patient Pain Scale 0 Pain Scale Used Standard (1-10) Medical history asthma Male surgical history herniorrhaphy Smoking Status Current every day smoker Alcohol Use none Drug Use none Patient resides with/at Spouse Safety Concerns Feels Safe At This Time Do you currently feel hopless, have No thoughts of self harm, or thoughts of harming others History of fall in last 14 days? No Coma Scale Eye Opening Spontaneous Coma Scale Motor Response Obeys Commands Coma Scale Verbal Response Oriented Coma Scale Total 15 Vital Signs Assessment Start: 10/14/16 17: 59 Freq: PROTOCOL Status: Complete Document 10/14/16 18:57 CRB (Rec: 10/14/16 20:04 CRB [id number]) ED Vital Signs Pain Reported No Pain Reported Pain Scale Used Standard (1-10) Blood Pressure (mm Hg) 162/122 Pulse Rate (beats/min) 109 Respiratory Rate (breaths/min) 18 Effort Normal for Patient Spontaneous Non-Labored Pattern Regular Pulse Oximetry (%) 95 Oxygen Delivery Room Air Document 10/14/16 20:04 CRB (Rec: 10/14/16 20:06 CRB [id number]) ED Vital Signs Pain Reported No Pain Reported Pain Scale Used Standard (1-10) Blood Pressure (mm Hg) 153/112 Pulse Rate (beats/min) 108 Respiratory Rate (breaths/min) 18 Effort Normal for Patient Spontaneous Non-Labored Pulse Oximetry (%) 90 Oxygen Delivery Room Air Document 10/14/16 20:45 CRB (Rec: 10/14/16 20:46 CRB [id number]) ED Vital Signs Pain Reported No Pain Reported Pain Scale Used Standard (1-10) Blood Pressure (mm Hg) 145/120 Pulse Rate (beats/min) 109 Respiratory Rate (breaths/min) 18 Depth Normal Effort Normal for Patient Spontaneous Non-Labored Pattern Regular Pulse Oximetry (%) 97 Oxygen Delivery Nasal Cannula Oxygen Flow Rate (LPM) 2 Document 10/14/16 20:55 CRB (Rec: 10/14/16 20:56 CRB [id number]) ED Vital Signs Pain Reported No Pain Reported Pain Scale Used Standard (1-10) Blood Pressure (mm Hg) 139/103 Pulse Rate (beats/min) 107 Respiratory Rate (breaths/min) 18 Depth Normal Effort Normal for Patient Spontaneous Non-Labored Pattern Regular Pulse Oximetry (%) 97 Oxygen Delivery Nasal Cannula Oxygen Flow Rate (LPM) 2 Document 10/14/16 21:37 LAP (Rec: 10/14/16 21:38 LAP [id number]) ED Vital Signs Pain Reported No Pain Reported Pain Scale 0 Pain Scale Used Standard (1-10) Blood Pressure (mm Hg) 153/120 Pulse Rate (beats/min) 109 Respiratory Rate (breaths/min) 18 Effort Spontaneous Pulse Oximetry (%) 97 Oxygen Delivery Nasal Cannula Document 10/14/16 22:02 LAP (Rec: 10/14/16 22:02 LAP [id number]) ED Vital Signs Pain Reported No Pain Reported Pain Scale 0 Pain Scale Used Standard (1-10) Blood Pressure (mm Hg) 153/116 Pulse Rate (beats/min) 110 Respiratory Rate (breaths/min) 18 Effort Spontaneous Non-Labored Pulse Oximetry (%) 94 Oxygen Delivery Nasal Cannula Oxygen Flow Rate (LPM) 2 Document 10/14/16 22:19 LAP (Rec: 10/14/16 22:20 LAP [id number]) ED Vital Signs Pain Reported No Pain Reported Pain Scale 0 Pain Scale Used Standard (1-10) Blood Pressure (mm Hg) 147/108 Pulse Rate (beats/min) 108 Respiratory Rate (breaths/min) 22 Effort Spontaneous Non-Labored Pulse Oximetry (%) 96 Oxygen Delivery Nasal Cannula Oxygen Flow Rate (LPM) 2 Document 10/14/16 22:54 LAP (Rec: 10/14/16 22:54 LAP [id number]) ED Vital Signs Pain Reported No Pain Reported Pain Scale 0 Pain Scale Used Standard (1-10) Blood Pressure (mm Hg) 151/111 Pulse Rate (beats/min) 109 Respiratory Rate (breaths/min) 20 Effort Spontaneous Non-Labored Pulse Oximetry (%) 96 Oxygen Delivery Nasal Cannula Oxygen Flow Rate (LPM) 2 Orders 10/14/16 17:59 12 lead ECG assessment [RC] NOW Cardiac monitoring [RC] .ONCE Saline lock [RC] .ONCE Supplemental oxygen titration [RC] .ONCE Physician Instructions: Vital Signs Assessment [RC] PROTOCOL XR chest 1V portable [XR] Stat Mode Of Transportation: Portable Reason For Exam: dyspnea Exam Performed At:: [facility] ECG 12 lead ECG [ECG] Stat Mode Of Transportation: Portable Reason For Exam: dyspnea Exam Performed At:: [facility] 10/14/16 18:00 B-Type Natriuretic Peptide Stat Comment: Specimen: Send someone from the department to collect Basic Metabolic Panel Stat Comment: Specimen: Send someone from the department to collect Complete Blood Count [HEME] Stat Comment: Specimen: Send someone from the department to collect Troponin I Stat Comment: Specimen: Send someone from the department to collect Ipratropium/Albuterol Neb [Duoneb] 9 ml IH ONCE ONE 10/14/16 18:01 PredniSONE 60 mg PO ONCE ONE 10/14/16 18:11 POC Glucometer Test [POC] Routine 10/14/16 19:43 Nitroglycerin 0.4 mg SL Q5MIN PRN 10/14/16 19:45 Nitroglycerin 25 mg in 250 ml IVC 50 mcg/min 10/14/16 20:[address] Stat Comment: Reason for Visit: new onset CHF, dyspnea, elevated trop 10/14/16 20:18 Furosemide [Lasix] 40 mg IVP ONCE ONE 10/14/16 20:22 Nitroglycerin 25 mg in 250 ml IVC 50 mcg/min 10/14/16 22:52 Incentive Spirometry [RC] .6 TIMES PER HR WHILE AWAKE Intermittent pneumatic indra [RC] .CONTINUOUS Intermit Pneumatic Compression Device: Calf Pumps Vital Signs Assessment [RC] Q4H Activated Partial Thrombo Time [COAG] Stat Specimen: Send someone from the department to collect Comment: Arterial Blood Gas Stat Specimen: Send someone from the department to collect Comment: D-Dimer [COAG] Stat Specimen: Send someone from the department to collect Comment: Drug Screen, Urine [UCHEM] Stat Specimen: Pre-Collection Label Comment: Lactic Acid ([facility] Only) Stat Specimen: Send someone from the department to collect Comment: Magnesium Stat Specimen: Send someone from the department to collect Comment: Phosphorous Stat Specimen: Send someone from the department to collect Comment: Prothrombin Time INR [COAG] Stat Specimen: Send someone from the department to collect Comment: Type and Screen [BBK] Routine Specimen: Send someone from the department to collect Comment: Urinalysis Reflex Cult & Micro [URIN] Stat Specimen: Pre-Collection Label Comment: Urinalysis reflex Microscopic [URIN] Stat Specimen: Send someone from the department to collect Comment: Acetaminophen [Tylenol] 650 mg PO Q6HR PRN Albuterol Neb [Proventil Neb] 2.5 mg IH Q2H PRN Aspirin 324 mg PO ONCE ONE Benzonatate [Tessalon] 200 mg PO TID PRN Docusate [Colace] 100 mg PO BID PRN Metoprolol [Lopressor] 5 mg IVP Q6HR PRN Morphine [Morphine Sulfate] 2 mg IVP Q4HR PRN Naloxone [Narcan] 0.4 mg IVP Q2MIN PRN OxyCODONE Immed Rel [Roxicodone] 5 mg PO Q6HR PRN Promethazine [Phenergan] 12.5 mg IVP Q6HR PRN Resuscitation Status: Active [RES] Routine Resuscitation Status: Full Code Comment: 10/14/16 22:55 CHF discharge checklist [RC] .atdischarge COPD Discharge Checklist [RC] .atdischarge Continuous pulse oximetry [RC] .ONCE Comment: Head of bed elevation [RC] .ONCE Head of bed elevation [RC] .ONCE Measure intake and output [RC] qshift Oxygen via nasal cannula Nasal Cannula 2 lpm Comment: Peripheral IV [RC] CONT Placement to Observation Routine Physician Instructions: Reason for Visit: Dizziness. Difficulty Breathing. Is VTE Prophylaxis Indicated?: Yes Consult to Nurse Navigator [CONS] Routine Comment: Consult to Nurse Navigator [CONS] Routine Comment: Consult to Nurse Navigator [CONS] Routine Comment: EV echocardiogram Routine Mode Of Transportation: Portable Reason For Exam: ACS Exam Performed At:: [facility] 10/14/16 22:56 Bed rest [RC] .CONT Physician Instructions: Bed rest w/bathroom privileges [RC] .PRN Cardiac Monitoring Med/Surg [RC] .CONT Telemetry Reason: ACS/CP Continuous pulse oximetry [RC] CONT Comment: Measure intake and output [RC] QSHIFT Measure weight [RC] DAILY Oxygen via nasal cannula Nasal Cannula 2 lpm Comment: Titrate O2 to main O2 sat greater than: 92% RT has an order or consult [RC] NOW 10/14/16 23:00 Troponin I Q6H Specimen: Send someone from the department to collect Comment: Enoxaparin [Lovenox *PHARMACY WT BASED*] 70 mg SQ Q12HCO Ipratropium/Albuterol Neb [Duoneb] 3 ml IH QIDR Metoprolol [Lopressor] 25 mg PO BID Nicotine Patch [Nicoderm] 21 mg TD DAILY 10/14/16 23:01 Continuous pulse oximetry [RC] .ONCE Comment: Oxygen via nasal cannula Nasal Cannula 2 lpm Comment: Titrate O2 to main O2 sat greater than: 90% 10/14/16 23:02 12 lead ECG assessment [RC] NOW Culture,Sputum with Gram Stain [RM] Routine Specimen: Send someone from the department to collect Comment: SHONDA Source: Sputum Specimen Description: 10/14/16 23:03 BIPAP [RC] .PRN 10/14/16 Breakfast Cardiac Diet Diet Modifications: 10/15/16 01:00 Bumetanide [Bumex] 1 mg IVP ONCE ONE 10/15/16 04:00 B-Type Natriuretic Peptide AM 0400 Specimen: Send someone from the department to collect Comment: C-Reactive Protein AM 0400 Specimen: Send someone from the department to collect Comment: Comprehensive Metabolic Panel AM 0400 Specimen: Send someone from the department to collect Comment: Hgb A1C AM 0400 Specimen: Send someone from the department to collect Comment: Lipid Panel AM 0400 Specimen: Send someone from the department to collect Comment: Thyroid Stimulating Hormone AM 0400 Specimen: Send someone from the department to collect Comment: Thyroxine (T4) Free AM 0400 Specimen: Send someone from the department to collect Comment: Triiodothyronine (T3) Free AM 0400 Specimen: Send someone from the department to collect Comment: 10/15/16 05:00 Troponin I Q6H Specimen: Send someone from the department to collect Comment: 10/15/16 06:30 Omeprazole [PriLOSEC] 20 mg PO DAILY@0630 10/15/16 07:00 ECG 12 lead ECG [ECG] Routine Mode Of Transportation: Portable Reason For Exam: Myocardial Infarction Exam Performed At:: [facility] 10/15/16 09:00 Aspirin 81 mg PO DAILY GuaiFENesin ER [Mucinex] 600 mg PO BID Losartan [Cozaar] 25 mg PO DAILY PredniSONE 40 mg PO DAILY 10/15/16 11:00 Troponin I Q6H Specimen: Send someone from the department to collect Comment: 10/15/16 21:00 Atorvastatin [Lipitor] 40 mg PO HS 10/15/16 Breakfast Fluid Restriction Diet Physician Instructions: 1500mls total fluid restriction per 24hrs Diet Modifications: 10/20/16 22:52 Activated Partial Thrombo Time [COAG] Stat Specimen: Send someone from the department to collect Comment: Lactic Acid ([facility] Only) Stat Specimen: Send someone from the department to collect Comment: Prothrombin Time INR [COAG] Stat Specimen: Send someone from the department to collect Comment: Laboratory Results 10/14/16 10/14/16 10/14/16 Range/Units 18:00 18:00 18:00 WBC 9.6 (4.3-11.1) K/mcL RBC 4.73 (4.19-5.50) M/mcL Hgb 12.7 L (12.9-16.9) g/dL Hct 40.7 (37.5-50.1) % MCV 86.0 (83.0-100.0) fL MCH 26.8 L (28.0-33.3) pg MCHC 31.2 L (31.6-35.5) g/dL RDW 14.5 (11.5-14.5) % Plt Count 336 (140-400) K/mcL MPV 9.4 (9.4-12.4) fL Immature Gran % 0.9 (0-4) % Seg Neutrophils % 61.0 % Lymphocytes % 28.8 % Monocytes % 7.7 % Eosinophils % 0.8 % Basophils % 0.8 % Neutrophils # 5.9 (1.6-8.9) K/mcL Lymphocytes # 2.8 (0.6-4.6) K/mcL Monocytes # 0.7 (0.0-1.3) K/mcL Eosinophils # 0.1 (0.0-0.6) K/mcL Basophils # 0.1 (0.0-0.2) K/mcL Nucleated RBCs/100 WBC 0.2 H (0) /100 WBC Sodium 135 L (136-145) mEq/L Potassium 4.3 (3.5-4.5) mEq/L Chloride 101 (98-109) mEq/L Carbon Dioxide 15 L (19-29) mEq/L BUN 21 (8-26) mg/dL Creatinine 1.16 (0.72-1.25) mg/dL Est GFR ( Amer) > 60 (> 60) Est GFR (Non-Af Amer) > 60 (> 60) BUN/Creatinine Ratio 18 (6-26) Glucose 61 L (70-99) mg/dL POC Glucose (58-89) Calculated Osmolality 281 (280-300) Calcium 8.9 (8.6-10.8) mg/dL Troponin I 0.07 H* (0-0.03) ng/mL B-Natriuretic Peptide (0-100) pg/mL 10/14/16 10/14/16 Range/Units 18:00 18:11 WBC (4.3-11.1) K/mcL RBC (4.19-5.50) M/mcL Hgb (12.9-16.9) g/dL Hct (37.5-50.1) % MCV (83.0-100.0) fL MCH (28.0-33.3) pg MCHC (31.6-35.5) g/dL RDW (11.5-14.5) % Plt Count (140-400) K/mcL MPV (9.4-12.4) fL Immature Gran % (0-4) % Seg Neutrophils % % Lymphocytes % % Monocytes % % Eosinophils % % Basophils % % Neutrophils # (1.6-8.9) K/mcL Lymphocytes # (0.6-4.6) K/mcL Monocytes # (0.0-1.3) K/mcL Eosinophils # (0.0-0.6) K/mcL Basophils # (0.0-0.2) K/mcL Nucleated RBCs/100 WBC (0) /100 WBC Sodium (136-145) mEq/L Potassium (3.5-4.5) mEq/L Chloride (98-109) mEq/L Carbon Dioxide (19-29) mEq/L BUN (8-26) mg/dL Creatinine (0.72-1.25) mg/dL Est GFR ( Amer) (> 60) Est GFR (Non-Af Amer) (> 60) BUN/Creatinine Ratio (6-26) Glucose (70-99) mg/dL POC Glucose 80 (58-89) Calculated Osmolality (280-300) Calcium (8.6-10.8) mg/dL Troponin I (0-0.03) ng/mL B-Natriuretic Peptide 1393 H (0-100) pg/mL Radiology Impressions Chest X-Ray 10/14/16 17:59 IMPRESSION: In this patient with cardiomegaly, there is asymmetric perihilar airspace change on the right. This could represent developing pulmonary edema. Underlying pneumonitis considered less likely No other significant findings. D/ / Ronen Bello MD / Ronen Bello MD Interpreting Provider: Ronen Bello MD Discharge Information ED Provider: Elpidio Henderson Status: ED Hold Time Seen by Provider: 10/14/16 17:58 Condition: Fair Triaged At: 10/14/16 17:55 Emergency Discharge Date/Time: Emergency Discharge Disposition: Admitted As Inpatient Clinical Impression New onset of congestive heart failure Pulmonary edema Elevated troponin Emergency Discharge Comment: Admit Intervention Last Done ED Dizziness Assessment 10/14/16 17:54 Query Result Dizziness Symptoms/Complaint Dizziness Dizziness Timing Gradual Onset Dizziness Description Lightheadedness Off-Balance Dizziness Similar Symptoms Previously No Dizziness Hx of Trauma No Dizziness Severity Mild Dizziness Improves With Remaining Still Dizziness Worsens With Movement Dizziness Associated Symptoms Denies Other Symptoms Level Of Consciousness Awake Alert Appropriate Follows Commands Patient Orientation Person Place Time Name Age Date of Day of Month Day of Week Month Year Time of Day Skin Temperature Warm Skin Moisture Dry Skin Turgor Elastic Respiratory Effort Normal for Patient Spontaneous Non-Labored Respiratory Pattern Regular Neurological Symptoms None Problems with Ambulation Gait and Balance Satisfac Nausea/Vomiting Presence None ED Discharge Assessment 10/14/16 22:39 Query Result ED Discharge Disposition Admitted ED Condition on Discharge Fair Med Rec/Patient Phamracy completed? Yes ED Admit to 2N Transported by EMS transport team Transported with monitor IV Severity scale (1-10) 0 Pain Scale Used Standard (1-10) Blood Pressure 154/117 Heart rate 105 Respiratory Rate 15 Pulse Oximetry Reading 95 Critical Care Minutes 0 Observation Discharge Date/Time: Observation Discharge Disposition: Observation Discharge Comment: Instructions: Stand-Alone Forms: Prescriptions: Visit Report - Forms: - Referrals:
[2016-10-15] MEDS: *HR* Enoxaparin 80 MG/0.8 ML SYRINGE SQ SCH ×3 (00:25→17:56)
[2016-10-15] MEDS: Nicotine 21 MG PATCH.TD24 TD SCH ×2 (00:26→08:38)
[2016-10-15] MEDS: Ipratropium/Albuterol Neb 3 ML IH SCH ×5 (00:47→22:50)
[2016-10-15 00:53] LABS: INR 2.6; Prothrombin Time 28.9 Seconds (9.4-12.1)
[2016-10-15 00:56] LABS: Activated Partial Thrombo Time 25.4 Seconds (26.0-36.0)
[2016-10-15] MEDS ORDERED: Bumetanide 1 MG/4 ML VIAL IVP ONE (01:00)
[2016-10-15 01:01] LABS: ABG Base Excess 1.6 mEq/L (-2.0 to 3.0); ABG HCO3 24.4 mEQ/L (21-27); ABG Oxygen Saturation 93 % (95-98); ABG PCO2 32 mmHg (35-45); ABG PH 7.49 pH Units (7.32-7.45); ABG PO2 62 mmHg (85-104); ABG TCO2 25.4 mEq/L (20-26)
[2016-10-15 01:02] LABS: Magnesium 1.1 mg/dL (1.6-2.6); Phosphorous 3.2 mg/dL (2.3-4.7)
[2016-10-15 01:03] LABS: Blood Gas FiO2 28 %
[2016-10-15] MEDS: Nitroglycerin 25 MG/250 ML INFUS..BTL IVC SCH ×4 (03:43→23:06)
[2016-10-15 04:58] LABS: Bilirubin,Urine Negative (Negative); Blood,Urine Negative (Negative); Clarity,Urine Clear (Clear); Color,Urine Yellow (Yellow); Glucose,Urine (UA) Normal (Normal); Ketones,Urine Negative (Negative); Leukocyte Esterase,Urine Negative (Negative); Nitrite,Urine Negative (Negative); Protein,Urine Negative (Neg-Trace); Specific Gravity,Urine 1.011 (1.010-1.025); Urobilinogen,Urine Normal (Normal)
[2016-10-15 05:07] LABS: Amphetamine Screen,Urine Negative ng/mL (Cutoff=1000); Barbiturate Screen,Urine Negative ng/mL (Cutoff=200); Benzodiazepines Screen,Urine Negative ng/mL (Cutoff=200); Cannabinoid Screen,Urine Negative ng/mL (Cutoff = 50); Cocaine Screen,Urine Negative ng/mL (Cutoff= 300); Opiate Screen,Urine Negative ng/mL (Cutoff=300); Phencyclidine Screen,Urine Negative ng/mL (Cutoff=25)
[2016-10-15 07:56] LABS: Alanine Aminotransferase 845 Units/L (0-55); Alkaline Phosphatase 131 Units/L (38-126); Aspartate Amino Transferase 675 Units/L (5-34); BUN/Creatinine Ratio 21 (6-26); Bilirubin,Total 1.2 mg/dL (0.2-1.2); Blood Urea Nitrogen 21 mg/dL (8-26); Calcium 7.8 mg/dL (8.6-10.8); Carbon Dioxide 21 mEq/L (19-29); Chloride 101 mEq/L (98-109); Cholesterol 96 mg/dL (< 200); Globulin 2.9 g/dL (2.4-3.5); Glucose 155 mg/dL (70-99); HDL Cholesterol 12 mg/dL (40-59); LDL Cholesterol,Calculated 74 mg/dL (0-99); Osmolality,Calculated 288 (280-300); Potassium 3.6 mEq/L (3.5-4.5); Sodium 136 mEq/L (136-145); Total Protein 5.9 g/dL (6.0-8.3); Triglycerides 52 mg/dL (< 150); eGFR For African Americans > 60 (> 60); eGFR For Non-African Americans > 60 (> 60)
[2016-10-15 08:00] LABS: Hemoglobin A1C 5.3 %
[2016-10-15 08:18] LABS: Thyroid Stimulating Hormone 1.265 mcIU/mL (0.350-4.840); Triiodothyronine (T3) Free 1.44 pg/mL (1.71-3.71)
[2016-10-15] MEDS: predniSONE 20 MG TABLET PO SCH (08:39)
[2016-10-15] MEDS: Aspirin 81 MG TAB.CHEW PO SCH (08:39)
[2016-10-15 08:52] LABS: C-Reactive Protein 38 mg/L (Less than 5)
--- NOTE | 2016-10-15 10:39 | Cardiology Consult Note ---
Date of Encounter: 10/15/16 Time of Encounter: 09:00 Assessment and Plan (1) Congestive heart failure, unspecified Current Visit: Yes Status: Acute Patient presents with recent complaints of dyspnea, orthopnea BNP 1744, increased from 1393 yesterday Troponins 0.07,0.06,0.06 EKG reveals sinus tachycardia, LVH ECHO, pending Patient currently on fluid restriction, but no diuresis being given Total fluid balance +495mL Patient does have bilateral rales on exam I suspect that patient's presentation may be multifactorial given suggestion of COPD Plan: Will hold statin for now due to elevated LFTs Recommend further investigation by primary team as to etiology of LFTs Continue Metoprolol, Aspirin Patient may benefit from gentle diuresis Will make further recommendations once ECHO has been completed Qualifiers: Congestive heart failure type: unspecified congestive heart failure type Congestive heart failure chronicity: acute Qualified Code(s): I50.9 - Heart failure, unspecified (2) Hypertension Current Visit: Yes Status: Acute Patient presented to ED in hypertensive with initial BP 158/117, 162/122, 153/ 112 Patient currently taking Lopressor 25mg BID with BP well controlled Monitor closely Qualifiers: Hypertension type: essential hypertension Qualified Code(s): I10 - Essential (primary) hypertension (3) Elevated troponin Current Visit: Yes Status: Acute Troponin of 0.07, 0.06, 0.06 not trending upward Patient is without chest pain and without ST segmental changes to EKG This suggests demand ischemia secondary to CHF exacerbation and possible COPD (4) Elevated liver function tests Current Visit: Yes Status: Acute Will hold statin for now due to elevated LFTs History of drug abuse and alcohol abuse Recommend further investigation by primary team as to etiology of LFTs (5) Tobacco abuse disorder Current Visit: Yes Status: Acute 8 minutes of smoking cessation discussed with patient and his Patient and verbalized understanding He is currently using nicoderm TD Discussion w patient/family: The assessment and plan as outlined above was discussed with the patient and/or family members who expressed understanding and agreement. All questions were answered. Thank you for involving us in the care of your patient. Please call with any questions. History of Present Illness Consult date: 10/15/16 Requesting physician: Dina Mrain Consult reason: New onset CHF Chief complaint: Dizziness History of present illness: Mr. Mccray is a 51 year old male who is an employee of [employer]. He states that he presented to work yesterday evening and began having dyspnea, wheezing, dizziness, and felt that he was going to faint. A rapid response was called by nursing staff and patient was evaluated in the ED. Patient states that he has been having increased dyspnea x 2 weeks. He has tried taking Primatene ( Guifenesin/Ephedrine HCl) tablets for the problem with some relief. He admits recent orthopnea and states that he has been sleeping with multiple pillows due to dyspnea. Patient has not been to a doctor in 4 years. He is unsure if he has HTN or HLD. Patient admits to smoking 32 years x 1 to 1.5 ppd. He admits to 3-4 40oz malt liquor alcoholic beverages per day for years. He has been sober for 3-4 years and denies any recent alcohol use. He also admits to using crack cocaine and sharing straws with other people 20 years ago. Admits to previous incarceration. Denies IVDA. Denies having tattoos. Past Med Surg Social Fam HX - Past Medical History Medical history: asthma - Social History Smoking Status: Current every day smoker Alcohol use: none Drug use: none - Family History Father Name: charissa mccray Age at : 67 Cause of : heart trouble Hx Family Cardiac Disorders: Yes (CHF, open heart surgery) Hx Family Endocrine Disorder: Yes (DM) Medications and Allergies Guaifenesin/Ephedrine HCl [Primatene Asthma Tablet] 1 each PO Q4H 10/14/16 [ History] Allergies No Known Allergies Allergy (Verified 10/14/16 17:56) All Systems Review: A 10-system review of systems was performed and is negative for pertinent findings except as documented above in the HPI. Physical Examination Vital Signs, Last 4 Hours Temp Pulse Resp BP Pulse Ox 10/15/16 10:34 97.8 F 98 16 126/95 92 10/15/16 10:11 94 125/85 10/15/16 09:55 16 92 10/15/16 08:00 95 10/15/16 07:55 93 10/15/16 07:33 98.0 F 93 16 132/98 92 General: Conversant, No Apparent Distress HEENT: Atraumatic, Normocephaly, Mucus Membranes Moist Neck: No JVD, Normal carotid pulses Cardiac: Reg Rate and Rhythm, Normal S1 and S2, No Murmur Lungs: Other (Bilateral rales) Neuro: Alert and responsive, No focal deficits noted Abdomen: Soft, Non-Tender Skin: No rashes noted on visualized skin Musculoskeletal: No Chest Wall Tenderness Extremities: No Clubbing, No Cyanosis, No Edema, Normal Pulses Results 10/14/16 18:00 10/15/16 07:18 Lab Results 10/15/16 10/15/16 10/15/16 00:36 00:36 00:36 INR 2.6 APTT 25.4 L D-Dimer 86683 H Sodium Potassium Chloride Carbon Dioxide BUN Creatinine Glucose Calcium Magnesium 1.1 L Total Bilirubin AST ALT Alkaline Phosphatase Troponin I 0.06 H* B-Natriuretic Peptide TSH 10/15/16 10/15/16 10/15/16 07:18 07:18 07:18 INR APTT D-Dimer Sodium 136 Potassium 3.6 Chloride 101 Carbon Dioxide 21 BUN 21 Creatinine 1.02 Glucose 155 H Calcium 7.8 L Magnesium Total Bilirubin 1.2 AST 675 H ALT 845 H Alkaline Phosphatase 131 H Troponin I 0.06 H* B-Natriuretic Peptide 1744 H TSH 1.265 - Imaging and Cardiology Chest Xray: report reviewed - EKG Interpretation EKG results cardiology: personally reviewed, other (sinus tachycardia, LVH) Consult Discharge Plan - Plan Referrals: Satish Collins MD [Primary Care Provider] - 10/25/16 10:00 am
--- NOTE | 2016-10-15 16:38 | Internal Med Progress Note ---
Date of Encounter: 10/15/16 Time of Encounter: 13:30 - Assessment and plan (1) Acute respiratory failure with hypoxia Current Visit: Yes Status: Acute Assessment and plan: Likely multifactorial, CHF Decompensation/PNA/Undiagnosed COPD exac Currently saturating well on nasal cannula Improvement in respiratory status with diuretic and steroid support will continue IV diuresis and systemic steroids Bronchodilators as needed O2 supplementation as needed CTA chest negative for PE given elevated D-dimer, will obtain b/l LE venous doppler to r/o DVT, if negative, will d/c therapeutic dose of lovenox and switch to dvt ppx dose imaging studies consistent with concern for PNA will start Levaquin IV follow up blood cultures continue to monitor O2 saturation (2) Pneumonia Current Visit: Yes Status: Acute Assessment and plan: plan as listed above Qualifiers: Pneumonia type: due to unspecified organism Laterality: unspecified laterality Lung location: unspecified part of lung Qualified Code(s): J18.9 - Pneumonia, unspecified organism (3) Hypertensive urgency Current Visit: Yes Status: Acute Assessment and plan: Resolved BP within acceptable range titrate off the nitro drip continue Losartan 50mg PO qd, Metoprolol 50mg PO BID will continue to closely monitor BP (4) Elevated troponin I measurement Current Visit: Yes Status: Acute Assessment and plan: likely demand ischemia no chest pain reported at this time cardiology on board, consultation appreciated (5) Tobacco abuse disorder Current Visit: Yes Status: Acute (6) Congestive heart failure, unspecified Current Visit: Yes Status: Acute Assessment and plan: follow up 2D echo continue IV diuresis monitor daily weight, strict I/Os fluid restriction diet cardiology input appreciated Qualifiers: Congestive heart failure type: unspecified congestive heart failure type Congestive heart failure chronicity: acute Qualified Code(s): I50.9 - Heart failure, unspecified (7) Elevated liver function tests Current Visit: Yes Status: Acute Assessment and plan: CT abd/pelvis negative for any liver pathology will follow up hepatitis serologies f/u GI consultation will continue to monitor (8) DVT prophylaxis Current Visit: Yes Status: Acute - Subjective Interval history: Patient seen and examined at bedside. resting in bed and saturating well on nasal cannula, reports of feeling better at this time. Noted history of cocaine and alcohol abuse in the past. Reports of being an everyday smoker. Denies any discomfort at this time. - Constitutional Vitals: Temp Pulse Resp BP Pulse Ox 98.1 F 94 18 116/77 92 10/15/16 15:52 10/15/16 15:52 10/15/16 15:52 10/15/16 15:52 10/15/16 15:20 General appearance: Present: cooperative, A&O X 3, no acute distress, answers questions appropriately - Head Head exam: Present: atraumatic, normocephalic - Eye Eye exam: Present: normal appearance, conjuntiva pink, sclera anicteric - Respiratory Respiratory exam: Absent: respiratory distress, wheezes (bibasilar crackles) - Cardiovascular Cardiovascular exam: Present: RRR, +S1, +S2. Absent: diastolic murmur, gallop, rubs, systolic murmur - GI/Abdominal GI/Abdominal exam: Present: normal bowel sounds, soft, no peritoneal signs. Absent: distended, tenderness - Extremities Exam Extremities exam: Present: warm, radial pulses palpable and symetrical. Absent : calf tenderness, cyanotic, pedal edema - Neurological Exam Neurological exam: Present: alert, oriented X3 - Psychiatric Psychiatric exam: Present: normal affect, normal mood Internal Medicine: Result - Labs CBC & Chem 7: 10/14/16 18:00 10/15/16 07:18 Labs: BMP 10/15/16 07:18 Sodium 136 Potassium 3.6 Chloride 101 Carbon Dioxide 21 BUN 21 Creatinine 1.02 Glucose 155 H Calcium 7.8 L Cardiac Enzymes 10/15/16 10/15/16 10/15/16 Range/Units 00:36 07:18 12:23 Troponin I 0.06 H* 0.06 H* 0.05 H* (0-0.03) ng/mL Liver Function 10/15/16 Range/Units 07:18 Total Bilirubin 1.2 (0.2-1.2) mg/dL AST 675 H (5-34) Units/L ALT 845 H (0-55) Units/L Alkaline Phosphatase 131 H (38-126) Units/L Albumin 3.0 L (3.5-5.0) g/dL Urine 10/15/16 Range/Units 04:40 Urine Color Yellow (Yellow) Urine Clarity Clear (Clear) Urine pH 6.0 (5.0-8.0) pH Units Ur Specific [place]cker[place] 1.011 (1.010-1.025) Urine Protein Negative (Neg-Trace) mg/dL Urine Glucose (UA) Normal (Normal) mg/dL - ABG Interpretation ABG results: ABG ABG pH 7.49 pH Units (7.32-7.45) H 10/15/16 00:45 ABG pCO2 32 mmHg (35-45) L 10/15/16 00:45 ABG pO2 62 mmHg (85-104) L 10/15/16 00:45 ABG O2 Saturation 93 % (95-98) L 10/15/16 00:45 PT/INR, D-dimer PT 28.9 Seconds (9.4-12.1) H 10/15/16 00:36 D-Dimer 68750 ng/mLFEU (0-500) H 10/15/16 00:36 - Impressions Impressions Abdomen/Pelvis CT 10/15/16 14:03 IMPRESSION: Mild caliectasis to upper and to a lesser extent lower poles of right kidney without obvious etiology. Colonic diverticulosis without evidence for diverticulitis. Duodenal diverticulum. Trace ascites. There is also mild degree of nonspecific stranding and fluid in the retroperitoneum to include in the extraperitoneal spaces of the pelvis to include presacral space. No focal fluid collections. Extensive atherosclerosis. D/ / 10/15/2016 15:12:59 Titus Murrell MD / Sandrita Tucker Interpreting Provider: Titus Murrell MD Chest CTA 10/15/16 14:30 IMPRESSION: No pulmonary emboli are identified. Small right pleural effusion, with right lower lobe and upper lobe airspace disease which could represent atelectasis or pneumonia. Diffuse apical predominant mild emphysematous changes. Sequela of remote granulomatous process is also identified. Cardiomegaly, with atherosclerotic disease and heavy coronary artery involvement. Nonspecific sub- carinal lymphadenopathy which may be reactive. D/ / Deandre Agosto MD / Deandre Agosto MD Interpreting Provider: Deandre Agosto MD Consult Discharge Plan - Plan Referrals: Satish Collins MD [Primary Care Provider] - 10/25/16 10:00 am
[2016-10-15] MEDS ORDERED: Ipratropium/Albuterol Neb 3 ML IH PRN (16:39)
--- NOTE | 2016-10-15 17:35 | Electrocardiograph Report ---
[address] [place], [place] [address] Test Date: 2016-10-14 Pat Name: Alexx Mccray Department: 103 Room: 2N11 Gender: M Manager Business Management: [facility] : 1965 Requested By: Taqueria Ortiz Order Number: [id number] Reading MD: Gabriela Polk Measurements Intervals [place] Rate: 114 P: 35 [place]: 173 QRS: 24 QRSD: 102 T: 59 QT: 345 QTc: 413 Interpretive Statements SINUS TACHYCARDIA WITH OCCASIONAL VENTRICULAR PREMATURE COMPLEXES POSSIBLE LEFT ATRIAL ENLARGEMENT POSSIBLE LEFT VENTRICULAR HYPERTROPHY POSSIBLE ANTERIOR MYOCARDIAL INFARCTION, OF INDETERMINATE AGE Electronically Signed On 10-15-2016 17:33:45 EDT by Gabriela Polk
[2016-10-15] MEDS: Levofloxacin 750 MG/150 ML 750 MG/150 ML BAG IVPB SCH (17:56)
[2016-10-15] MEDS: Furosemide 40 MG/4 ML VIAL IVP SCH (17:56)
--- NOTE | 2016-10-15 21:43 | Venous Imaging Report ---
LE Venous Duplex Patient Name:Alexx Mccray Order Number:[id number] Procedure Date:10/15/2016 Date:1965Age:51 yrs Gender:Male Location:[facility] Room #: 2N11 Stockholder:Tina Cirocem Referring MD:Dina Marin MD sugar house supervisor:Satish Collins MD Reading MD:Keven Sofia MD , FACS Primary Indications:r/o DVT Secondary Indications: Risk Factors Yes/No Anticoagulants Yes Impressions: Bilateral lower extremity: normal superficial and deep exam. Findings Venous Duplex Results: Right: Venous imaging of the lower extremity reveals full patency and normal vessel compressibility of the right distal iliac, right common femoral, right superficial femoral, right popliteal, right posterior tibial, right peroneal, right great saphenous and right lesser saphenous. Doppler signals in the evaluated veins were normal. Left: Venous imaging of the lower extremity reveals full patency and normal vessel compressibility of the left distal iliac, left common femoral, left superficial femoral, left popliteal, left posterior tibial, left peroneal, left great saphenous and left lesser saphenous. Doppler signals in the evaluated veins were normal. Prior Study: No prior study available for comparison. Lower Extremity Venous Duplex Side Vein Compress Spontaneous Flow Augment Diameter (cm) Depth (cm) Right Distal Iliac Normal Yes Phasic Yes Right Common Femoral Normal Yes Phasic Yes Right Superficial Femoral Normal Yes Phasic Yes Right Popliteal Normal Yes Phasic Yes Right Posterior Tibial Normal Yes Phasic Yes Right Peroneal Normal Yes Phasic Yes Right Great Saphenous Normal Yes Phasic Yes Right Lesser Saphenous Normal Yes Phasic Yes Left Distal Iliac Normal Yes Phasic Yes Left Common Femoral Normal Yes Phasic Yes Left Superficial Femoral Normal Yes Phasic Yes Left Popliteal Normal Yes Phasic Yes Left Posterior Tibial Normal Yes Phasic Yes Left Peroneal Normal Yes Phasic Yes Left Great Saphenous Normal Yes Phasic Yes Left Lesser Saphenous Normal Yes Phasic Yes Updated by Keven Sofia MD, FACS on 10/15/2016 9:36:58 PM Keven Sofia MD electronically signed on 10/15/2016 9:37:21 PM with status of Final
[2016-10-16] MEDS: Ipratropium/Albuterol Neb 3 ML IH SCH ×4 (04:16→23:36)
[2016-10-16 04:48] LABS: Basophils % 0.1 %; Eosinophils % 0.1 %; Hematocrit 35.5 % (37.5-50.1); Hemoglobin 11.4 g/dL (12.9-16.9); Immature Granulocytes % 0.6 % (0-4); Lymphocytes # 2.7 K/mcL (0.6-4.6); Lymphocytes % 13.5 %; Mean Corpuscular HGB Conc 32.1 g/dL (31.6-35.5); Mean Corpuscular Hemoglobin 27.2 pg (28.0-33.3); Mean Corpuscular Volume 84.7 fL (83.0-100.0); Mean Platelet Volume 9.7 fL (9.4-12.4); Monocytes # 1.5 K/mcL (0.0-1.3); Monocytes % 7.5 %; Platelet Count 319 K/mcL (140-400); Red Blood Count 4.19 M/mcL (4.19-5.50); Red Cell Distribution Width 14.4 % (11.5-14.5); Segmented Neutrophils % 78.2 %
[2016-10-16 05:00] LABS: Neutrophils # 15.6 K/mcL (1.6-8.9)
[2016-10-16 05:07] LABS: Alanine Aminotransferase 665 Units/L (0-55); Alkaline Phosphatase 133 Units/L (38-126); Aspartate Amino Transferase 317 Units/L (5-34); BUN/Creatinine Ratio 23 (6-26); Bilirubin,Total 0.9 mg/dL (0.2-1.2); Blood Urea Nitrogen 23 mg/dL (8-26); Calcium 7.8 mg/dL (8.6-10.8); Carbon Dioxide 22 mEq/L (19-29); Chloride 103 mEq/L (98-109); Glucose 131 mg/dL (70-99); Magnesium 1.7 mg/dL (1.6-2.6); Osmolality,Calculated 289 (280-300); Phosphorous 2.2 mg/dL (2.3-4.7); Potassium 3.2 mEq/L (3.5-4.5); Sodium 137 mEq/L (136-145); eGFR For African Americans > 60 (> 60); eGFR For Non-African Americans > 60 (> 60)
[2016-10-16] MEDS: Nitroglycerin 25 MG/250 ML INFUS..BTL IVC SCH (05:07)
[2016-10-16] MEDS: *HR* Enoxaparin 80 MG/0.8 ML SYRINGE SQ SCH (05:45)
[2016-10-16] MEDS: Levofloxacin 750 MG/150 ML 750 MG/150 ML BAG IVPB SCH (08:21)
[2016-10-16] MEDS: Nicotine 21 MG PATCH.TD24 TD SCH (08:23)
[2016-10-16] MEDS: Aspirin 81 MG TAB.CHEW PO SCH (08:24)
[2016-10-16] MEDS: predniSONE 20 MG TABLET PO SCH (08:24)
[2016-10-16] MEDS: Furosemide 40 MG/4 ML VIAL IVP SCH ×2 (08:25→17:35)
[2016-10-16] MEDS ORDERED: Magnesium Sulfate 1 GM in D5% in Water 100 ML IVPB ONE (08:31)
[2016-10-16 08:54] LABS: INR 1.9; Prothrombin Time 21.3 Seconds (9.4-12.1)
--- NOTE | 2016-10-16 10:08 | ECHO - Doppler Report ---
Echocardiogram Name: Alexx Mccray Date of Study: 10/15/2016 Date: 1965 Ht: 67.0 in Medical Record#: [id number] Age: 51 Wt: 159.0 lb Gender: Male BSA: 1.83 Order #: [id number] Location: [facility] Room #: 2N11 Reading Physician: Nora Maldonado DO Agriculture Sales Account Manager: Tina Moura Ordering Physician: Navneet Hooks MD Primary Physician: Satish Collins MD Indications: ACS Impressions: LVEF 25%. Severe global LV systolic dysfunction with regional variations. LV diastolic dysfunction with elevated filling pressures. Left ventricle is moderately dilated. Severe bi-atrial enlargement. RV is mildly dilated with normal function. Mild aortic regurgitation. Mild mitral regurgitation. Mild tricuspid regurgitation. Mild pulmonic regurgitation. Mild pulmonary hypertension. The IVC is dilated. No prior echo for comparison. Left Ventricular Wall Motion: Rest Echo Findings The apex, apical inferior, mid inferior, basal inferior, apical anterior, mid anterior, basal anterior, apical septal, mid inferior septal, basal inferior septal, apical lateral, mid anterior lateral, basal anterior lateral, mid anterior septal, mid inferior lateral, basal anterior septal and basal inferior lateral vines were hypokinetic. Findings: Study Quality * Technically adequate exam. ECG Findings * Normal sinus rhythm. Left Ventricle * Moderately dilated left ventricle. * Diastolic dysfunction with elevated filling pressures. * LVEF 25%. Aorta * Normally sized aortic root. Aortic Valve * Trileaflet aortic valve. * Mildly calcified aortic valve leaflets. * No aortic stenosis. * Mild aortic regurgitation. Mitral Valve * Normal mitral valve structure. * No mitral stenosis. * Mild mitral regurgitation. Tricuspid Valve * Mild tricuspid regurgitation. * Normal tricuspid valve structure. * Estimated RA pressure is 15 mmHg. * Estimated RVSP is 43 mmHg. * Mild pulmonary hypertension. Pulmonic Valve * Pulmonic valve is not well visualized. * No pulmonic stenosis. * Mild pulmonic regurgitation. Pulmonary Artery * Pulmonary artery not well visualized. Right Ventricle * Mildly dilated RV with normal function. Left Atrium * Severely dilated left atrium. Right Atrium * Severely dilated right atrium. Interatrial Septum * No evidence of PFO by color Doppler. IVC * The IVC is dilated. * < 50% respiratory change. History History of Smoking Years 20 Packs 1 Family History of CAD Measurements: BP: 132/ 87 2D Normal Values IVSd: .90 cm 0.6 - 1.0 cm LVIDd: 6.80 cm 3.7 - 5.6 cm LVPWd: 1.10 cm 0.6 - 1.1 cm LVIDs: 5.50 cm 1.5 - 3.6 cm AO: 3.10 cm < 4.0 cm LA: 5.80 cm 2.0 - 4.0cm %FS: 19.10 cm >25 % LA volume: 137 Mitral Valve Peak E:1.05 m/sec Peak A:.41 m/sec E/A Ratio:2.6 Peak E' Lat David:8.09 cm/s Peak E' Med David:4.29 cm/s E/E' Lat Ratio:13 E/E' Med Ratio:24.5 Tricuspid Valve TV Regurg Peak Grad: 28.00mmHg TV Regurg Peak David: 2.66m/sec Updated by Nora Maldonado on 10/16/2016 9:58:13 AM electronically signed on 10/16/2016 10:01:27 AM with status of Final Wall Motion Davidson: 1=Normal, 2=Hypokinesis, 3=Akinesis, 4=Dyskinesis, 5=Aneurysmal, 6=Hyperkinetic, X=Not Visualized (Blank)=Missing
--- NOTE | 2016-10-16 10:54 | Cardiology Progress Note ---
Date of Encounter: 10/16/16 Time of Encounter: 09:30 Assessment and Plan (1) Congestive heart failure, unspecified Current Visit: Yes Status: Acute ECHO 10/15/16 reveals LVEF 25%, LV wall hypokinesis, global LV systolic dysfunction, LV diastolic dysfunction with elevated filling pressures, LV moderately dilated Severe bi-atrial enlargement, mild AR, mild MR, mild TR, mild SD, mild pulmonary HTN, IVC dilated Chest CT 10/15/16 demonstrated atherosclerotic calcifications with heavy coronary artery involvement, right pleural effusion Plan: Given the above findings, recommend C for evaluation of coronary vessels Continue BB, ASA Will provide further recommendations following cath Qualifiers: Congestive heart failure type: combined Congestive heart failure chronicity : unspecified congestive heart failure chronicity Qualified Code(s): I50.40 - Unspecified combined systolic (congestive) and diastolic (congestive) heart failure (2) Hypertension Current Visit: Yes Status: Acute Patient presented to ED in hypertensive with initial BP 158/117, 162/122, 153/ 112 Patient currently taking Lopressor 25mg BID, Cozaar 50mg po daily with BP well controlled Recommend holding Lasix as patient appears euvolemic Monitor closely Qualifiers: Hypertension type: essential hypertension Qualified Code(s): I10 - Essential (primary) hypertension (3) Elevated troponin Current Visit: Yes Status: Acute Troponin of 0.07, 0.06, 0.06 not trending upward These values are nondiagnostic and likely secondary to demand ischemia secondary to CHF and COPD (4) Elevated liver function tests Current Visit: Yes Status: Acute Will hold statin for now due to elevated LFTs History of drug abuse and alcohol abuse Currently being investigated by GI team (5) Tobacco abuse disorder Current Visit: Yes Status: Acute 5 minutes of smoking cessation discussed with patient today Patient verbalized understanding He is currently using nicoderm TD Discussion w patient/family: The assessment and plan as outlined above was discussed with the patient and/or family members who expressed understanding and agreement. All questions were answered. Thank you for involving us in the care of your patient. Please call with any questions. Subjective Principal diagnosis: CHF, COPD, elevated LFTs Interval history: Patient resting comfortably in bed at time of patient interview. Patient states that his dyspnea has improved. Objective Vital Signs, Last 4 Hours Temp Pulse Resp BP Pulse Ox 10/16/16 08:15 88 10/16/16 07:03 97.3 F L 90 18 129/92 95 General: Conversant, No Apparent Distress HEENT: Atraumatic, Normocephaly, Mucus Membranes Moist Neck: No JVD, Normal carotid pulses Cardiac: Reg Rate and Rhythm, Normal S1 and S2, No Murmur Lungs: Other (Prolonged expiratory phase, coarse breath sounds to right lung base greater than left) Neuro: Alert and responsive, No focal deficits noted Abdomen: Soft, Non-Tender Skin: No rashes noted on visualized skin Musculoskeletal: No Chest Wall Tenderness Extremities: No Clubbing, No Cyanosis, No Edema, Normal Pulses Results 10/16/16 04:11 10/16/16 04:11 Lab Results 10/15/16 10/16/16 10/16/16 12:23 04:11 04:11 WBC 19.9 H D Hgb 11.4 L Hct 35.5 L Plt Count 319 INR Sodium 137 Potassium 3.2 L Chloride 103 Carbon Dioxide 22 BUN 23 Creatinine 0.98 Glucose 131 H Calcium 7.8 L Magnesium 1.7 Total Bilirubin 0.9 AST 317 H ALT 665 H Alkaline Phosphatase 133 H Troponin I 0.05 H* 10/16/16 08:43 WBC Hgb Hct Plt Count INR 1.9 Sodium Potassium Chloride Carbon Dioxide BUN Creatinine Glucose Calcium Magnesium Total Bilirubin AST ALT Alkaline Phosphatase Troponin I - Imaging and Cardiology Chest Xray: report reviewed Echo: report reviewed Other Results: CT chest/abdomen/pelis report reviewed - EKG Interpretation EKG results cardiology: personally reviewed (tachycardia, LVH, possible prior anterior NJ) Consult Discharge Plan - Plan Referrals: Satish Collins MD [Primary Care Provider] - 10/25/16 10:00 am
--- NOTE | 2016-10-16 11:26 | Gastroenterology Consult Note ---
<LauraElpidio chopra Jenny - Last Filed: 10/16/16 11:24> Date of Encounter: 10/16/16 Time of Encounter: 09:55 - Assessment and plan (1) Elevated liver function tests Current Visit: Yes Status: Acute Assessment and plan: Unclear etiology. LFTs improving. On admission AST 675 and ALT 845, today AST 317 and ALT 665. Complete liver workup with labs and liver US. (2) Acute respiratory failure with hypoxia Current Visit: Yes Status: Acute Assessment and plan: Management per primary team. (3) Congestive heart failure, unspecified Current Visit: Yes Status: Acute Assessment and plan: Cardiology following. Qualifiers: Congestive heart failure type: combined Congestive heart failure chronicity : acute Qualified Code(s): I50.41 - Acute combined systolic (congestive) and diastolic (congestive) heart failure - Time Spent With Patient Total time spent is greater than 50% in coordination of care (as documented) at patient's floor/unit and/or counseling patient: GI History of Present Illness - Data of Consult Patient: new to practice Consult date: 10/16/16 Requesting Physician: Dina Marin MD - Consult Narrative Reason for consult: Elevated LFTs History of present illness: Mr. Mccray is a 51 year old male with PMHx of CHF and asthma who presented to the ED with dizziness and SOB. He denied chest pain. Dyspnea worsened with exertion. No fever, chills, abdominal pain, nausea, or vomiting. He admits to using cocaine and shared straws with other people 20 years ago. He denies IV drug use. His LFTs were noted to be elevated with AST 675 and ALT of 845. Procedures: None NSAIDs: None Anticoagulation: None Past Med Surg Social Fam HX - Past Medical History Medical history: asthma, other Psychiatric history: other - Past Surgical History Surgical History: other - Social History Smoking Status: Current every day smoker Alcohol use: none Drug use: none - Family History Father Name: charissa mccray Age at : 67 Cause of : heart trouble Hx Family Cardiac Disorders: Yes (CHF, open heart surgery) Hx Family Endocrine Disorder: Yes (DM) - Gastrointestinal Gastrointestinal: Present: as per HPI - Constitutional Constitutional: as per HPI - EENT Eyes: as per HPI Ears: Present: as per HPI Nose, mouth and throat: Present: as per HPI - Cardiovascular Cardiovascular ROS: Present: as per HPI - Respiratory Respiratory IM: Present: as per HPI - Genitourinary Genitourinary: Absent: change in color, Urinary frequency - Neurological ROS Neurological GI: Present: as per HPI - Hematologic/Lymphatic Hematologic/Lymphatic pediatric: Present: as per HPI - Musculoskeletal Musculoskeletal ROS GI: Present: as per HPI - Integumentary Integumentary GI: Present: as per HPI - Psychiatric ROS Psychiatric GI: Present: as per HPI - Endocrine Endocrine IM: Present: as per HPI - Constitutional Vitals: Temp Pulse Resp BP Pulse Ox 97.3 F L 94 18 129/92 92 10/16/16 07:03 10/16/16 11:04 10/16/16 11:21 10/16/16 07:03 10/16/16 11:21 General appearance: Present: cooperative, A&O X 3, no acute distress, answers questions appropriately - Head Head exam: Present: atraumatic, normocephalic - Eye Eye exam: Present: normal appearance, sclera anicteric - ENT ENT exam: Present: mucous membranes dry - Neck Neck exam general surgery: Present: normal inspection, trachea midline - Respiratory Respiratory exam: Present: decreased breath sounds, CTAB - Cardiovascular Cardiovascular exam: Present: RRR, +S1, +S2 - GI/Abdominal GI/Abdominal exam: Present: soft, no peritoneal signs. Absent: distended, firm , guarding, tenderness - Rectal Rectal exam: Present: deferred - Extremities Exam Extremities exam: Present: warm - Neurological Exam Neurological exam: Present: no focal deficits - Psychiatric Psychiatric exam: Present: normal affect, normal mood - Skin Skin exam: Present: dry, intact, normal color, warm Results - Labs CBC & Chem 7: 10/16/16 04:11 10/16/16 04:11 Labs: Last Result Calcium 7.8 mg/dL (8.6-10.8) L 10/16/16 04:11 Troponin I 0.05 ng/mL (0-0.03) H* 10/15/16 12:23 C-Reactive Protein 38 mg/L (Less than 5) H 10/15/16 07:18 Triglycerides 52 mg/dL (< 150) 10/15/16 07:18 Urine Opiates Screen Negative ng/mL (Caihaf=843) 10/15/16 04:40 Entire Visit Hgb 11.4 g/dL (12.9-16.9) L 10/16/16 04:11 Hct 35.5 % (37.5-50.1) L 10/16/16 04:11 PT 21.3 Seconds (9.4-12.1) H 10/16/16 08:43 Total Bilirubin 0.9 mg/dL (0.2-1.2) 10/16/16 04:11 AST 317 Units/L (5-34) H 10/16/16 04:11 ALT 665 Units/L (0-55) H 10/16/16 04:11 - ABG ABG results: ABG ABG pH 7.49 pH Units (7.32-7.45) H 10/15/16 00:45 ABG pCO2 32 mmHg (35-45) L 10/15/16 00:45 ABG pO2 62 mmHg (85-104) L 10/15/16 00:45 ABG O2 Saturation 93 % (95-98) L 10/15/16 00:45 PT/INR, D-dimer PT 21.3 Seconds (9.4-12.1) H 10/16/16 08:43 D-Dimer 45213 ng/mLFEU (0-500) H 10/15/16 00:36 - Impressions Impressions Abdomen/Pelvis CT 10/15/16 14:03 IMPRESSION: Mild caliectasis to upper and to a lesser extent lower poles of right kidney without obvious etiology. Colonic diverticulosis without evidence for diverticulitis. Duodenal diverticulum. Trace ascites. There is also mild degree of nonspecific stranding and fluid in the retroperitoneum to include in the extraperitoneal spaces of the pelvis to include presacral space. No focal fluid collections. Extensive atherosclerosis. D/ / 10/15/2016 15:12:59 Titus Murrell MD / Sandrita Tucker Interpreting Provider: Titus Murrell MD Chest CTA 10/15/16 14:30 IMPRESSION: No pulmonary emboli are identified. Small right pleural effusion, with right lower lobe and upper lobe airspace disease which could represent atelectasis or pneumonia. Diffuse apical predominant mild emphysematous changes. Sequela of remote granulomatous process is also identified. Cardiomegaly, with atherosclerotic disease and heavy coronary artery involvement. Nonspecific sub- carinal lymphadenopathy which may be reactive. D/ / Deandre Agosto MD / Deandre Agosto MD Interpreting Provider: Deandre Agosto MD Consult Discharge Plan - Plan Referrals: Satish Collins MD [Primary Care Provider] - 10/25/16 10:00 am <Miriam Hoffman - Last Filed: 10/16/16 18:41> Date of Encounter: 10/16/16 Time of Encounter: 12:00 - Time Spent With Patient Total time spent is greater than 50% in coordination of care (as documented) at patient's floor/unit and/or counseling patient: GI History of Present Illness - Data of Consult Requesting Physician: Dina Marin MD - Consult Narrative History of present illness: Mr. Mccray is a 51 year old male - Constitutional Vitals: Temp Pulse Resp BP Pulse Ox 97.4 F L 89 16 111/85 94 10/16/16 15:21 10/16/16 18:15 10/16/16 15:21 10/16/16 18:15 10/16/16 18:15 Results - Labs CBC & Chem 7: 10/16/16 04:11 10/16/16 04:11 Labs: Last Result Calcium 7.8 mg/dL (8.6-10.8) L 10/16/16 04:11 Ferritin 157 ng/ml (22-275) 10/16/16 08:43 Troponin I 0.05 ng/mL (0-0.03) H* 10/15/16 12:23 C-Reactive Protein 38 mg/L (Less than 5) H 10/15/16 07:18 Triglycerides 52 mg/dL (< 150) 10/15/16 07:18 Urine Opiates Screen Negative ng/mL (Ycekid=028) 10/15/16 04:40 Entire Visit Hgb 11.4 g/dL (12.9-16.9) L 10/16/16 04:11 Hct 35.5 % (37.5-50.1) L 10/16/16 04:11 PT 21.3 Seconds (9.4-12.1) H 10/16/16 08:43 Ferritin 157 ng/ml (22-275) 10/16/16 08:43 Total Bilirubin 0.9 mg/dL (0.2-1.2) 10/16/16 04:11 AST 317 Units/L (5-34) H 10/16/16 04:11 ALT 665 Units/L (0-55) H 10/16/16 04:11 - ABG ABG results: ABG ABG pH 7.49 pH Units (7.32-7.45) H 10/15/16 00:45 ABG pCO2 32 mmHg (35-45) L 10/15/16 00:45 ABG pO2 62 mmHg (85-104) L 10/15/16 00:45 ABG O2 Saturation 93 % (95-98) L 10/15/16 00:45 PT/INR, D-dimer PT 21.3 Seconds (9.4-12.1) H 10/16/16 08:43 D-Dimer 31504 ng/mLFEU (0-500) H 10/15/16 00:36 - Attending Attestation I examined this patient and my medical decision-making was reviewed with the PORTFOLIO STRATEGIST/PA/Advanced Practice Nurse/Resident Physician. I agree with the documented findings, disposition and treatment plan as described except to the extent set forth below. LFT abnormalities most probably due to congestive hepatopathy as of CHF r/o other etiologies
[2016-10-16 11:33] LABS: Hepatitis A Antibody IgM Nonreactive (Nonreactive); Hepatitis B Surface Antigen Nonreactive (Nonreactive); Hepatitis C Virus Antibody Nonreactive (Nonreactive)
[2016-10-16 11:35] LABS: Hepatitis B Core IgM Reactive (Nonreactive)
--- NOTE | 2016-10-16 12:04 | Pre-Sedation Evaluation ---
Pre-sedation evaluation - Pre-sedation checklist Date of procedure: 10/16/16 Procedure: C Recent Vitals: Last Vital Signs Temp 97.3 F L 10/16/16 07:03 Pulse 94 10/16/16 11:04 Resp 18 10/16/16 11:21 BP 129/92 10/16/16 07:03 Pulse Ox 92 10/16/16 11:21 H&P (including ROS) documented in medical record: Yes Previous reaction to sedatives/anesthetics: No Dietary Status: No solid food in preceding 4 hrs and no liquid in preceding 2 hrs Airway Assessment: Patient can open mouth completely, TMJ function normal ASA Classification *see protocol: CLASS II-Mild systemic disease Plan of Care: Pt appropriate candidate for procedure/moderate/conscious sedation , Risks/benefits of procedure/sedation discussed w/ patient/family
[2016-10-16] MEDS: Vancomycin 1,000 MG in D5% in Water 250 ML IVPB SCH (13:42)
[2016-10-16] MEDS ORDERED: *HR* Heparin 10,000 UNIT/10 ML VIAL ONE (14:02)
[2016-10-16] MEDS ORDERED: Nitroglycerin 1,000 MCG/10 ML VIAL IV ONE (14:02)
[2016-10-16] MEDS ORDERED: 0.9 % Sodium Chloride 1,000 ML ONE ×2 (14:02→16:29)
[2016-10-16] MEDS ORDERED: Heparin 1,000 UNITS/500 mL NS 500 ML ONE (14:02)
[2016-10-16] MEDS ORDERED: Verapamil 5 MG/2 ML VIAL ONE (14:02)
--- NOTE | 2016-10-16 16:17 | Internal Med Progress Note ---
Date of Encounter: 10/16/16 Time of Encounter: 12:45 - Assessment and plan (1) Acute respiratory failure with hypoxia Current Visit: Yes Status: Acute Assessment and plan: Likely multifactorial, CHF Decompensation/PNA/Undiagnosed COPD exac Currently saturating well on nasal cannula Improvement in respiratory status with diuretic and steroid support will continue IV diuresis and systemic steroids Bronchodilators as needed O2 supplementation as needed CTA chest negative for PE given elevated D-dimer, will obtain b/l LE venous doppler: Negative for DVT. D/ C therapeutic dose Lovenox imaging studies consistent with concern for PNA continue Levaquin IV follow up blood cultures continue to monitor O2 saturation (2) Pneumonia Current Visit: Yes Status: Acute Assessment and plan: plan as listed above Qualifiers: Pneumonia type: due to unspecified organism Laterality: unspecified laterality Lung location: unspecified part of lung Qualified Code(s): J18.9 - Pneumonia, unspecified organism (3) Hypertensive urgency Current Visit: Yes Status: Acute Assessment and plan: Resolved BP within acceptable range continue Losartan 50mg PO qd, Metoprolol 50mg PO BID will continue to closely monitor BP (4) Elevated troponin I measurement Current Visit: Yes Status: Acute Assessment and plan: likely demand ischemia no chest pain reported at this time cardiology on board, consultation appreciated (5) Tobacco abuse disorder Current Visit: Yes Status: Chronic Assessment and plan: smoking cessation counseling provided nicotine supplementation provided (6) Congestive heart failure, unspecified Current Visit: Yes Status: Acute Assessment and plan: 2D echo reported LVEF of 25% Scheduled for [facility] today continue IV diuresis monitor daily weight, strict I/Os fluid restriction diet cardiology input appreciated Qualifiers: Congestive heart failure type: combined Congestive heart failure chronicity : unspecified congestive heart failure chronicity Qualified Code(s): I50.40 - Unspecified combined systolic (congestive) and diastolic (congestive) heart failure (7) Elevated liver function tests Current Visit: Yes Status: Acute Assessment and plan: GI eval appreciated will obtain further work up as per GI continue to monitor LFTs patient reported history of excessive Acetaminophen use patient educated against taking excessive amounts of Acetaminophen daily, however given his LFT, unlikely secondary to acetaminophen toxicity f/u hepatitis serologies (8) DVT prophylaxis Current Visit: Yes Status: Acute Assessment and plan: Lovenox SQ (9) Electrolyte abnormality Current Visit: Yes Status: Acute Assessment and plan: K supplemented will start electrolyte protocol and replace lytes as needed - Subjective Interval history: Patient seen and examined with family present at bedside. Currently saturating well on room air, reports of feeling anxious and states he is scheduled for a [facility] later today. No overnight issues reported. - Constitutional Vitals: Temp Pulse Resp BP Pulse Ox 97.4 F L 88 16 103/82 99 10/16/16 15:21 10/16/16 15:30 10/16/16 15:21 10/16/16 15:21 10/16/16 15:21 General appearance: Present: cooperative, A&O X 3, no acute distress, answers questions appropriately - Head Head exam: Present: atraumatic, normocephalic - Respiratory Respiratory exam: Absent: respiratory distress, wheezes (equal air entry bilaterally, no crackles) - Cardiovascular Cardiovascular exam: Present: RRR, +S1, +S2. Absent: diastolic murmur, gallop, rubs, systolic murmur - GI/Abdominal GI/Abdominal exam: Present: normal bowel sounds, soft, no peritoneal signs. Absent: distended, tenderness - Extremities Exam Extremities exam: Present: warm, radial pulses palpable and symetrical. Absent : calf tenderness, cyanotic, pedal edema - Neurological Exam Neurological exam: Present: alert, oriented X3 - Psychiatric Psychiatric exam: Present: anxious Internal Medicine: Result - Labs CBC & Chem 7: 10/16/16 04:11 10/16/16 04:11 Labs: Short CBC 10/16/16 Range/Units 04:11 WBC 19.9 H D (4.3-11.1) K/mcL Hgb 11.4 L (12.9-16.9) g/dL Hct 35.5 L (37.5-50.1) % Plt Count 319 (140-400) K/mcL Neutrophils # 15.6 H (1.6-8.9) K/mcL BMP 10/16/16 04:11 Sodium 137 Potassium 3.2 L Chloride 103 Carbon Dioxide 22 BUN 23 Creatinine 0.98 Glucose 131 H Calcium 7.8 L Liver Function 10/16/16 Range/Units 04:11 Total Bilirubin 0.9 (0.2-1.2) mg/dL AST 317 H (5-34) Units/L ALT 665 H (0-55) Units/L Alkaline Phosphatase 133 H (38-126) Units/L Albumin 3.0 L (3.5-5.0) g/dL - ABG Interpretation ABG results: ABG ABG pH 7.49 pH Units (7.32-7.45) H 10/15/16 00:45 ABG pCO2 32 mmHg (35-45) L 10/15/16 00:45 ABG pO2 62 mmHg (85-104) L 10/15/16 00:45 ABG O2 Saturation 93 % (95-98) L 10/15/16 00:45 PT/INR, D-dimer PT 21.3 Seconds (9.4-12.1) H 10/16/16 08:43 D-Dimer 24744 ng/mLFEU (0-500) H 10/15/16 00:36 - Impressions Impressions Abdomen/Pelvis CT 10/15/16 14:03 IMPRESSION: Mild caliectasis to upper and to a lesser extent lower poles of right kidney without obvious etiology. Colonic diverticulosis without evidence for diverticulitis. Duodenal diverticulum. Trace ascites. There is also mild degree of nonspecific stranding and fluid in the retroperitoneum to include in the extraperitoneal spaces of the pelvis to include presacral space. No focal fluid collections. Extensive atherosclerosis. D/ / 10/15/2016 15:12:59 Titus Murrell MD / Sandrita Tucker Interpreting Provider: Titus Murrell MD Consult Discharge Plan - Plan Referrals: Satish Collins MD [Primary Care Provider] - 10/25/16 10:00 am
[2016-10-16] MEDS ORDERED: *HR* FentaNYL (PF) 100 MCG/2 ML VIAL ONE (16:29)
[2016-10-16] MEDS ORDERED: *HR* Midazolam HCl 2 MG/2 ML VIAL ONE (16:29)
[2016-10-16] MEDS ORDERED: Nitroglycerin Spray 4.9 GM BOTTLE ONE (16:33)
--- NOTE | 2016-10-16 16:45 | Pre-Sedation Evaluation ---
Pre-sedation evaluation - Pre-sedation checklist Date of procedure: 10/16/16 Procedure: [facility] Recent Vitals: Last Vital Signs Temp 97.4 F L 10/16/16 15:21 Pulse 88 10/16/16 15:30 Resp 16 10/16/16 15:21 BP 103/82 10/16/16 15:21 Pulse Ox 99 10/16/16 15:21 H&P (including ROS) documented in medical record: Yes Previous reaction to sedatives/anesthetics: No Dietary Status: No solid food in preceding 4 hrs and no liquid in preceding 2 hrs Airway Assessment: Patient can open mouth completely, TMJ function normal ASA Classification *see protocol: CLASS II-Mild systemic disease Plan of Care: Pt appropriate candidate for procedure/moderate/conscious sedation , Risks/benefits of procedure/sedation discussed w/ patient/family
--- NOTE | 2016-10-16 17:31 | Invasive Diagnostic Lab Proc ---
Name: Alexx Mccray Date of Study: 10/16/2016 Date: 1965 Ht: 66.9in Medical Record#: [id number] Age: 51 Wt: 160.28lb Gender: Male BSA: 1.84 Order #: [id number] BMI: 25.16 Physicians Procedure Physician: [facility]cada MD, [facility] Referring MD: Satish Collins MD Referring MD: Staff Name Position Time In Renee Manuel RN Sales Trainer 04:46 PM Alice Bach RN Monitor 04:47 PM Nell Kruse RT Scrub 04:47 PM Indications Indication Cardiomyopathy Non-Stemi Procedures Performed Procedure L HRT ARTERY/VENTRICLE ANGIO Pre-Procedure Checklist Informed consent is complete signed and on chart. H\\T\\P is on chart. ID band is on and ID verified with patient. Patient NPO for procedure The procedure was described for the patient and questions were answered. Blood Pressure: 129/92 ECG is on chart. Rhythm: NSR Plan of Care Patient will tolerate the procedure without complications. Adequate level of comfort will be maintained. Hemodynamics will remain stable Patient will recover from procedure without complications. Respiratory function will be maintained. Cardiac rhythm will remain stable. Patient temperature will be maintained. Patient and/or family have verbalized understanding of the procedure. Patient Education Chief Complaint/Reason for Test: Cardiac Cath Developmental Category: Adult (18-64 years) Developmentally Appropriate for Age: Yes Learning Barriers: None Education Needs: Procedure Education Method: Verbal Information Taught: Cardiac Cath Educational Evaluation: Able to repeat information Intravenous Access Time IV Size Location DC'd Fluid/Drip Rate Units RN 01:57 PM 20g 1 1/4" Patent On Arrival Lt Arm 0.9NaCl 25 ml/hr Renee Manuel RN 01:57 PM 18g 1 1/4" Patent On Arrival Lt Antecubital Renee Manuel RN Allergies NKA NONE KNOWN No Known Allergies Vital Signs Time BP (mmHg) HR (bpm) O2 Sat. RR (bpm) LOC 01:56 PM 129 / 92 94 92 % 18 5 = Fully awake and oriented or at pre-proc level 04:49 PM / % 5 = Fully awake and oriented or at pre-proc level 04:49 PM / % 4 = Oriented but drowsy 04:44 PM 107 / 81 83 97 % 25 04:48 PM 105 / 86 87 100 % 28 04:54 PM 118 / 85 87 100 % 26 04:59 PM 100 / 73 80 86 % 24 05:04 PM 111 / 72 79 93 % 15 Procedural Medications Time Medication Dose Units Method Given By 04:48 PM Oxygen 2 L/min nasal cannula Renee Manuel RN 04:48 PM Versed 2 mg Intravenous Renee Manuel RN 04:48 PM Fentanyl 50 mcg Intravenous Renee Manuel RN 04:48 PM Nitroglycerin 400 mcg Sublingual Renee Manuel RN 04:53 PM Lidocaine 2% 1 ml Subcutaneous Christos Moncada MD, FACC 04:54 PM Heparin 4000 units Nitroglycerin 200 mcg Verapamil 2.5 mg Intraarterial Christos Moncada MD, FACC 04:58 PM Oxygen 4 L/min nasal cannula Renee Manuel RN ASA Classification: CLASS II- Mild systemic disease (i.e. well-controlled diabetes, hypertension, asthma, cigarette smoking) Mikey Score Preprocedure Postprocedure Activity 2- Moves 4 extremities sustained head lift Activity Circulation 2- SBP +/= 20 points of pre-anesthetic level Circulation Consciousness 2- Awake and alert oriented x 3 Consciousness O2 Saturation 2- Able to maintain O2 satruation of 92% on room air O2 Saturation Respiratory 2- Able to deep breathe and cough well Respiratory Total Score 10 Total Score Contrast Agent: Isovue Diagnostic Contrast: 70 ml Total Contrast: 70 ml Fluoro Dose: 119 mGy Procedure Log Time Note Enter By 04:36 PM CathStat 04:36 PM Vitals capture started with the following parameters, Patient=Adult, Interval=5 min, Initial Tjoniarx=091 mmHg, Deflation Rate=5 mmHg 04:36 PM Recorded ECG: HR=87 Condition=Condition 1 04:38 PM Vitals capture stopped. 04:39 PM Vitals capture started with the following parameters, Patient=Adult, Interval=5 min, Initial Khetfweq=354 mmHg, Deflation Rate=5 mmHg 04:41 PM Vitals capture stopped. 04:43 PM Vitals capture started with the following parameters, Patient=Adult, Interval=5 min, Initial Qjxbdrnp=308 mmHg, Deflation Rate=5 mmHg 04:44 PM HR=83 bpm, NKZN=974/81 mmhg, SpO2=97.0 %, Resp=25 B/min, Comment=NSR 04:46 PM Pt arrived to optical laboratory mechanic 1 at 16:46 [facility] PM Renee Manuel RN Position: Sales Trainer Time in: 16:46 emily 04:47 PM Alice Bach RN Position: Monitor Time in: 16:47 emily 04:47 PM Nell Kruse Position: Scrub Time in: 16:47 emily 04:47 PM Patient charges- Angio tray pack, Navilyst 3mm J, Pulse Oximetry and ACIST tubing and transducer [email or web address] 04:47 PM Case Delayed [facility] 04:47 PM Hair removed from procedure site in procedure lab using clippers. Right wrist prepped with Chloraprep by Renee Manuel RN, safety strap applied then patient was draped. [facility] intact. [facility] 04[facility] PM Hair removed from procedure site in procedure lab using clippers. Right groin prepped with Chloraprep by Renee Manuel RN, safety strap applied then patient was draped. Skin intact. [facility] 04:48 PM Physician arrived 16:48 emily 04:48 PM ASA Class CLASS II- Mild systemic disease (i.e. well-controlled diabetes, hypertension, asthma, cigarette smoking) emily 04:48 PM Meet and greet completed [facility] 04:48 PM Sign in performed according to hospital policy. [facility] 04:48 PM Procedure start 16:48 emily 04:48 PM Time: 16:48 Oxygen on at 2 L/min per nasal cannula by Renee Manuel RN 04:48 PM Time: 16:48 Versed 2 mg Intravenous Given by Renee Manuel RN 04:48 PM Time: 16:48 Fentanyl 50 mcg Intravenous Given by Renee Manuel RN, lpajeffery 04:48 PM HR=87 bpm, SJUI=554/86 mmhg, AyC0=045.0 %, Resp=28 B/min, Comment=NSR 04:49 PM Time: 16:48 Nitroglycerin 400 mcg Sublingual Given by Renee Manuel RN 04:49 PM Time: 16:49 Patient comfortable and pain free: Yes [facility] 04:49 PM Time: 16:49LOC: 5 = Fully awake and oriented or at pre-proc level [facility] 04:49 PM Clinical Presentation: [facility] 04[facility] PM Time out performed according to hospital policy l[facility]ley 04:53 PM Time: 16:53 1 ml Lidocaine 2% to right radial Subcutaneous Given by Christos Moncada MD, [facility] lparsley 04:54 PM HR=87 bpm, UEXJ=296/85 mmhg, KqV6=511.0 %, Resp=26 B/min, Comment=NSR 04:54 PM Access obtained by percutaneous puncture. 6Fr 11cm Terumo Glidesheath sheath placed in right Radial artery. [id number] lparsley 04:54 PM Time: 16:54 Patient given 4,000 units Heparin, 200 mcg Nitroglycerin, and 2.5 mg Verapamil Intraarterial by Christos Moncada MD, [facility] lparsley 04:56 PM 5Fr FR 4 catheter inserted over the wire [facility] lparsley 04:56 PM RCA angiography performed in multiple views. lparsley 04:57 PM Recorded Pressure: Ao, HR=82, Condition=Condition 1 (Aorta) Ao 97/85/92 04:57 PM Lesion found in Mid RCA. Pre Stenosis: 85 Pre DONNELL Flow: 3: Complete and Brisk Flow/Perfusion lparsley 04:57 PM Catheter removed lparsley 04:57 PM 5Fr FL3.5 catheter inserted over the wire [id number] lparsley 04:58 PM LCA angiography performed in multiple views. lparsley 04:59 PM Time: 16:58 Oxygen on at 4 L/min per nasal cannula by Renee Manuel RN lparsley 04:59 PM HR=80 bpm, KBKC=341/73 mmhg, SpO2=86.0 %, Resp=24 B/min, Comment=NSR 05:00 PM Coronary Dominance: right lparsley 05:00 PM Lesion found in Mid LAD. Pre Stenosis: 95 Pre DONNELL Flow: lparsley 05:00 PM Lesion found in Mid Circumflex. Pre Stenosis: 65 Pre DONNELL Flow: lparsley 05:00 PM Lesion found in Distal Circumflex. Pre Stenosis: 70 Pre DONNELL Flow: lparsley 05:01 PM Catheter removed lparsley 05:01 PM 5Fr Pigtail catheter inserted over the wire [facility] lparsley 05:01 PM Pressure channel 1 zero failed. 05:01 PM Pressure channel 1 zeroed. 05:01 PM Recorded Pressure: LV, HR=82, Condition=Condition 1 (Left Ventricle) LV 106/19/30 05:01 PM Catheter selectively placed in left ventricle [facility] 05:02 PM Bolus angiogram of left Ventricle complete: 12 ml/sec for a total of 36 mls [facility] 05:02 PM Recorded Pressure: LV, Ao, HR=80, Condition=Condition 1 (Left Ventricle) LV 129/22/70, (Aorta) Ao 109/70/92 05:04 PM HR=79 bpm, IGHG=263/72 mmhg, SpO2=93.0 %, Resp=15 B/min 05:04 PM Time: 16:49 Patient comfortable and pain free: Yes lparsley 05:04 PM Time: 16:49LOC: 4 = Oriented but drowsy [facility] 05:05 PM Procedure completed at 17:05 [facility] 05:05 PM Sign out completed: Radiation Dose 119 mGy Fluoro Time: 1.1 Isovue 370 - 200ml contrast 70 ml given by Christos Moncada MD, [facility]. Complications: NoneCardiac Rehab Consult needed: YesConfirmed administered medications: Yes [facility] 05:05 PM Isovue 370 - 200ml,1 Bottle(s) used. [facility] 05:06 PM Lesion found in 1st Marginal. Pre Stenosis: 65 Pre DONNELL Flow: 3: Complete and Brisk Flow/Perfusion [facility] 05:06 PM Arterial sheath pulled, Vasc Band closure device used and was Successful S/N. [facility] 05:06 PM 10 ml air in Vasc Band. [facility] 05:06 PM Post ECG NSR lparsley 05:06 PM Post Blood Pressure 111/72 [facility] 05:06 PM 17:06 Post Pulses Rt Radial 2+ [facility] 05:07 PM Information taught Cardiac Cath and Vasc Band [facility] 05:07 PM Education needs Procedure, Plan of Care, and Responsibilities of Patient in Care [facility] 05:07 PM Learning barriers :None [facility] 05:07 PM Education Methods Verbal [facility] 05:07 PM Education evaluation Able to repeat information [facility] 05:07 PM Site status No bleeding/hematoma - Rt Wrist as reported by Nell Kruse RT at 17:07 [facility] 05:07 PM Plavix, Effient or Brilinta given No l[facility]ley 05:08 PM Mid/Distal Left Anterior Descending Coronary Artery and diagonal branches with 95% stenosis. If graft is supplying this area, 0 % stenosis lparsley 05:08 PM Circumflex, Obtuse Marginal, Left Posterior Descending, and Left Posterolateral Coronary Arteries with 70 % stenosis. If graft is supplying this area, 0 % stenosis lparsley 05:08 PM Right Coronary, Right Posterior Descending Arteries with Right Posterolateral and Acute Marginal branches with 85 % stenosis. If graft is supplying this area, 0 % stenosis l[facility]ley 05:12 PM Report given to Judith FITZPATRICK Pt taken to 2N Room #11. 17:12 lparsley 05:12 PM Delay to floor No l[facility] 05:12 PM Patient out of room: 17:12 lparsley 05:12 PM Family placed in consult room. l[facility]ley 05:12 PM Complications: None lparsley 05:12 PM Fluoro Time: 1.1 lparsley 05:12 PM Isovue 370 - 200ml contrast 70 ml given by Christos Moncada MD, [facility]. lparsley 05:12 PM Radiation Dose 119 mGy [facility] Complications Complication None None Hemodynamics Pressures Site Systolic/A Wave Diastolic/V Wave Mean AO 97 85 92 LV 106 19 30 LV 129 22 70 AO 109 70 92 Post Procedure Information Blood Pressure: 111/72 mmHg Rhythm: NSR Post procedural instructions were given Closure Device Time Device Success/Fail 10/16/2016 5:08:00 PM Mechanical Compression Successful Site Checks Time Location Status Staff Sheath In? Note 05:07 PM Rt Wrist No bleeding/hematoma Nell Kruse RT Pulses Time Site Pre-Procedure Post-Procedure Note 10/16/2016 1:55:00 PM Bilateral DP 2+ 10/16/2016 1:56:00 PM Bilateral PT 1+ 10/16/2016 1:56:00 PM Bilateral radial 2+ 10/16/2016 4:46:00 PM Rt Radial Normal plethysmography's Test 5:06:00 PM Rt Radial 2+ Updated by Renee Manuel RN on 10/16/2016 5:18:47 PM electronically signed on 10/16/2016 5:26:30 PM with status of Final
[2016-10-17] MEDS: Vancomycin 1,000 MG in D5% in Water 250 ML IVPB SCH (03:28)
[2016-10-17] MEDS: Ipratropium/Albuterol Neb 3 ML IH SCH ×2 (04:14→11:06)
[2016-10-17 05:46] LABS: Basophils % 0.1 %; Eosinophils % 0.1 %; Hematocrit 36.5 % (37.5-50.1); Hemoglobin 11.4 g/dL (12.9-16.9); Immature Granulocytes % 0.7 % (0-4); Lymphocytes # 2.9 K/mcL (0.6-4.6); Lymphocytes % 19.6 %; Mean Corpuscular HGB Conc 31.2 g/dL (31.6-35.5); Mean Corpuscular Hemoglobin 26.6 pg (28.0-33.3); Mean Corpuscular Volume 85.3 fL (83.0-100.0); Mean Platelet Volume 9.5 fL (9.4-12.4); Monocytes # 1.5 K/mcL (0.0-1.3); Monocytes % 10.1 %; Neutrophils # 10.1 K/mcL (1.6-8.9); Platelet Count 335 K/mcL (140-400); Red Blood Count 4.28 M/mcL (4.19-5.50); Red Cell Distribution Width 14.8 % (11.5-14.5); Segmented Neutrophils % 69.4 %
[2016-10-17 06:07] LABS: Alanine Aminotransferase 548 Units/L (0-55); Albumin/Globulin Ratio 0.9 (1.1-2.2); Alkaline Phosphatase 147 Units/L (38-126); Aspartate Amino Transferase 183 Units/L (5-34); BUN/Creatinine Ratio 24 (6-26); Bilirubin,Direct 0.3 mg/dL (0.0-0.5); Bilirubin,Indirect 0.4 mg/dL (0.0-1.2); Bilirubin,Total 0.7 mg/dL (0.2-1.2); Blood Urea Nitrogen 24 mg/dL (8-26); Calcium 7.6 mg/dL (8.6-10.8); Carbon Dioxide 20 mEq/L (19-29); Chloride 105 mEq/L (98-109); Globulin 3.3 g/dL (2.4-3.5); Glucose 106 mg/dL (70-99); Magnesium 1.9 mg/dL (1.6-2.6); Osmolality,Calculated 288 (280-300); Phosphorous 2.7 mg/dL (2.3-4.7); Sodium 137 mEq/L (136-145); Total Protein 6.3 g/dL (6.0-8.3); eGFR For African Americans > 60 (> 60); eGFR For Non-African Americans > 60 (> 60)
[2016-10-17] MEDS: Nicotine 21 MG PATCH.TD24 TD SCH (08:28)
[2016-10-17] MEDS: Levofloxacin 750 MG/150 ML 750 MG/150 ML BAG IVPB SCH (08:30)
[2016-10-17] MEDS: predniSONE 20 MG TABLET PO SCH (08:30)
[2016-10-17] MEDS: Furosemide 40 MG/4 ML VIAL IVP SCH (08:30)
[2016-10-17] MEDS: Aspirin 81 MG TAB.CHEW PO SCH (08:30)
--- NOTE | 2016-10-17 08:35 | Invasive Diagnostic Lab ---
Name: Alexx Mccray Date of Study: 10/16/2016 Date: 1965 Ht: 170.0 cm /66.9 in Medical Record#: [id number] Age: 51 Wt: 72.7 kg / 160.28 lb Account/Order#: [id number] Gender: Male BSA: 1.84 Order #: [id number] Fluoro Dose: 119 mGy BMI: 25.16 Procedure Physician: Christos Moncada MD, [facility] Referring MD: Satish Collins MD Referring MD: Procedures Performed: LEFT HEART CATH Indications: Cardiomyopathy, Non-Stemi Impressions: There is severe three vessel coronary artery disease. There is severe LV Dysfunction EF 15-20% SYNTAX score <22 low tercile however SYNTAX II score favors CABG for revascularization with 4 year mortality approximately 20% with PCI and 3.5% with CABG Recommendations: Optimal medical therapy of patient's disease. Aggressive risk factor modification. Heart team evaluation for high risk CABG vs high risk PCI. History/Risk Factors: Asthma Cardiomyopathy Hypertension CHF within 2 weeks Current/Recent Smoker Procedure Access obtained in the right Radial artery by percutaneous puncture Complications: None, None Contrast: Isovue 70ml Closure Device: Mechanical Compression Hemodynamics: Pressures Site Systolic/ A Wave Diastolic/ V Wave End Diastolic/ Mean HR AO 97 85 92 82 LV 106 19 30 82 LV 129 22 70 80 AO 109 70 92 80 LV Ventriculography Ejection Method: LV Gram Ejection Fraction: 15-20% Wall Motion: CANALES Anterobasal Severe Hypokinesis Anterolateral Severe Hypokinesis Apical: Severe Hypokinesis Inferoapical Severe Hypokinesis Inferobasal Severe Hypokinesis Coronary Dominance: right Lesion Findings/Interventions * Left Main Coronary Artery The LMCA is angiographically free of disease. * Left Anterior Descending There is a long 70-95% stenosis in the Mid LAD and 50% in the proximal LAD. Diagonal 1 80% stenosis Diagonal 2 90% stenosis * Circumflex There is a long 60-70% stenosis in the Mid Circumflex. There is a 60% stenosis in the Distal Circumflex. There is a 65-70% stenosis in the 1st Marginal. The lesion has a DONNELL flow of 3. * Right Coronary Artery There is a long 70-85% stenosis in the Mid RCA. The lesion has a DONNELL flow of 3. Distal RCA 50% stenosis. PDA has mild diffuse disease. Updated by Renee Manuel RN on 10/16/2016 5:14:27 PM Christos Moncada MD, FACC electronically signed on 10/17/2016 8:28:36 AM with status of Final
--- NOTE | 2016-10-17 08:56 | Cardiothoracic Consult Note ---
Date of Encounter: 10/17/16 Time of Encounter: 08:52 Assessment and Plan (1) New onset of congestive heart failure Current Visit: Yes Status: Acute The assessment and plan as outlined above was discussed with the patient and/or family members who expressed understanding and agreement. All questions were answered. The patient has congestive heart failure and positive troponin. He does have triple-vessel disease with good distal targets. However, his ejection fraction is quite low. I feel that high risk angioplasty with stents is the best initial approach. The patient and his also prefer this approach. The patient also needs to control his hypertension and quit smoking. His long-term outlook is somewhat guarded, given his poor ejection fraction. - History of Present Illness History of present illness: Mr. Mccray is a 51 year old male History of present illness. The patient is a 51-year-old gentleman who presented with shortness of breath and dizziness. He also had peripheral edema. No history of myocardial infarction or chest pain. Troponin was elevated at 0.07. BNP was elevated at 1744. Echocardiogram revealed ejection fraction of 25% . No significant valvular disease. There was also biatrial enlargement. Cardiac catheterization revealed ejection fraction of 15-20%. He had triple-vessel disease. There was a 95% LAD lesion. A 70% circumflex lesion. An 85% right coronary artery lesion. He had good distal vessels with good targets. Chest x- ray on admission revealed pulmonary edema. Liver function tests were elevated. Past medical history is notable for hypertension. He also has a history of asthma and wheezing. Medications prior to admission include an [id number] asthma medication and asthma inhalers. He has no known allergies. Social history. He lives in [place] with his and works at [employer]. Does continue to smoke one pack of cigarettes per day. Used to drink alcohol, but quit 4 years ago. Family history is negative for coronary artery disease. Review of systems is negative. Past Med Surg Social Fam HX - Past Medical History Medical history: asthma, other Psychiatric history: other - Past Surgical History Surgical History: other - Social History Smoking Status: Current every day smoker Alcohol use: none Drug use: none - Family History Father Name: charissa mccray Age at : 67 Cause of : heart trouble Hx Family Cardiac Disorders: Yes (CHF, open heart surgery) Hx Family Endocrine Disorder: Yes (DM) Medications and Allergies Guaifenesin/Ephedrine HCl [Primatene Asthma Tablet] 1 each PO Q4H 10/14/16 [ History] Allergies No Known Allergies Allergy (Verified 10/14/16 17:56) All Systems Review: A 10-system review of systems was performed and is negative for pertinent findings except as documented above in the HPI. Physical Examination Vital Signs, Last 4 Hours Temp Pulse Resp BP Pulse Ox 10/17/16 08:20 97.6 F 90 18 121/97 97 Pupils are equal, round and reactive to light and accommodation.teeth are in poor repair neck is supple. Trachea in the midline. No thyromegaly or carotid bruits. Lungs are clear to percussion and auscultation. Heart is in a regular rate and rhythm. No murmurs, gallops or rubs. Abdomen is benign. No tenderness, rebound or guarding. No hepatosplenomegaly or masses. Extremities without edema. 1+ pulses. The patient does complain of what sounds like claudication with pain in his calves upon exertion. Cranial nerves, motor and sensory intact. He is awake, alert and oriented 3. Results 10/17/16 05:00 10/17/16 05:00 Lab Results, Last 24 hours 10/16/16 10/17/16 10/17/16 08:43 05:00 05:00 WBC 14.6 H Hgb 11.4 L Hct 36.5 L Plt Count 335 INR 1.9 Sodium 137 Potassium 4.0 Chloride 105 Carbon Dioxide 20 BUN 24 Creatinine 1.01 Glucose 106 H Calcium 7.6 L Magnesium 1.9 Total Bilirubin 0.7 AST 183 H ALT 548 H Alkaline Phosphatase 147 H Consult Discharge Plan - Plan Referrals: Satish Collins MD [Primary Care Provider] - 10/25/16 10:00 am
[2016-10-17] MEDS ORDERED: *HR* Enoxaparin 40 MG/0.4 ML SYRINGE SQ SCH (09:00)
--- NOTE | 2016-10-17 10:20 | Cardiology Progress Note ---
Date of Encounter: 10/17/16 Time of Encounter: 10:16 Assessment and Plan (1) Ischemic cardiomyopathy Current Visit: Yes Status: Acute Results reviewed with patient. Multivessel CAD, severly depressed EF. Concominant issues - probable significant COPD, elevated LFTs, ongoing tobacco use, remote history of cocaine use, quit alcohol abuse about 3 years ago. Elevated Syntax score would favor CABG. However, multiple comorbidities complicate treatment strategy and CT surgery recommends PCI. Case discussed with interventional cardiology. Recommend transfer to tertiary center for further evaluation and management. Continue aspirin, BB, ARB therapy. Change BB to Toprolx XL given reduced EF. Hold DAPT pending [facility] evaluation and revascularization decision. Currently chest pain free. No further inpatient cardiology recommendations. Discussion w patient/family: The assessment and plan as outlined above was discussed with the patient and/or family members who expressed understanding and agreement. All questions were answered. Thank you for involving us in the care of your patient. Please call with any questions. Subjective Principal diagnosis: CHF, COPD, elevated LFTs Interval history: Patient seen and examined. Appreciate CT surgery input. PCI recommended. Case discussed with Dr. Moncada. Elevated syntax score. Recommend referral to [facility] for tertiary center evaluation. Otherwise, no chest pain overnight. Dyspnea has improved during hospital stay. Objective Vital Signs, Last 4 Hours Temp Pulse Resp BP Pulse Ox 10/17/16 08:20 97.6 F 90 18 121/97 97 General: Conversant, No Apparent Distress HEENT: Atraumatic, Normocephaly, Mucus Membranes Moist Neck: No JVD, Normal carotid pulses Cardiac: Reg Rate and Rhythm, Normal S1 and S2, No Murmur Lungs: Other (Shallow, few rhonchi) Abdomen: Soft, Non-Tender Skin: No rashes noted on visualized skin Musculoskeletal: No Chest Wall Tenderness Extremities: No Clubbing, No Cyanosis, No Edema, Normal Pulses Results 10/17/16 05:00 10/17/16 05:00 Lab Results 10/17/16 10/17/16 05:00 05:00 WBC 14.6 H Hgb 11.4 L Hct 36.5 L Plt Count 335 Sodium 137 Potassium 4.0 Chloride 105 Carbon Dioxide 20 BUN 24 Creatinine 1.01 Glucose 106 H Calcium 7.6 L Magnesium 1.9 Total Bilirubin 0.7 AST 183 H ALT 548 H Alkaline Phosphatase 147 H - Imaging and Cardiology Echo: report reviewed Cardiac cath: report reviewed - EKG Interpretation EKG results cardiology: personally reviewed Consult Discharge Plan - Plan Referrals: Satish Collins MD [Primary Care Provider] - 10/25/16 10:00 am
[2016-10-17 11:46] VITALS: BP 109/88
--- NOTE | 2016-10-17 12:44 | Transfer Summary ---
Date of Encounter: 10/17/16 Time of Encounter: 12:41 Transfer Discharge Sum: Diag - Discharge Diagnosis (1) Acute respiratory failure with hypoxia Status: Acute (2) Pneumonia Status: Acute (3) Hypertensive urgency Status: Acute (4) Elevated troponin I measurement Status: Acute (5) Tobacco abuse disorder Status: Chronic (6) Congestive heart failure, unspecified Status: Chronic (7) Elevated liver function tests Status: Chronic (8) DVT prophylaxis Status: Acute (9) Electrolyte abnormality Status: Acute Transfer Discharge Sum: Med - Medications Active and Home Medications: Home Medications Guaifenesin/Ephedrine HCl [Primatene Asthma Tablet] 1 each PO Q4H 10/14/16 [ History Confirmed 10/14/16] Active Medications Albuterol/Ipratropium (Duoneb) 3 ml IH QIDR SMITH Stop: 04/15/17 23:01 Last Admin: 10/17/16 11:06 Dose: 3 ml Albuterol/Ipratropium (Duoneb) 3 ml IH [id number] PRN; Protocol PRN Reason: Shortness Of Breath/Wheezing Stop: 04/16/17 16:40 Aspirin (Aspirin) 81 mg PO DAILY SMITH Stop: 04/16/17 09:01 Last Admin: 10/17/16 08:30 Dose: 81 mg Benzonatate (Tessalon) 200 mg PO TID PRN PRN Reason: Cough Stop: 04/15/17 22:53 Docusate Sodium (Colace) 100 mg PO BID PRN PRN Reason: Constipation Stop: 04/15/17 22:53 Enoxaparin Sodium (Lovenox) 40 mg SQ DAILY SMITH Stop: 04/18/17 09:01 Last Admin: 10/17/16 08:31 Dose: 40 mg Furosemide (Lasix) 40 mg IVP BIDDIURETIC SMITH Stop: 04/16/17 17:01 Last Admin: 10/17/16 08:30 Dose: 40 mg Guaifenesin (Mucinex) 600 mg PO BID SMITH Stop: 04/16/17 09:01 Last Admin: 10/17/16 08:30 Dose: 600 mg Levofloxacin/Dextrose (Levaquin 750mg/150 Ml) 750 mg in 150 mls @ 100 mls/hr IVPB DAILY SMITH PRN Reason: Protocol Stop: 04/16/17 17:01 Last Infusion: 10/17/16 10:07 Dose: Infused Vancomycin HCl 1,000 mg/ (Dextrose) 250 mls @ 167 mls/hr IVPB Q12H [facility] PRN Reason: Protocol Stop: 04/17/17 14:01 Last Infusion: 10/17/16 05:05 Dose: Infused Losartan Potassium (Cozaar) 50 mg PO DAILY [facility] Stop: 04/16/17 09:01 Last Admin: 10/17/16 08:30 Dose: 50 mg Metoprolol Succinate (Toprol Xl) 50 mg PO DAILY [facility] Stop: 04/19/17 09:01 Metoprolol Tartrate (Lopressor) 5 mg IVP Q6HR PRN PRN Reason: SEE COMMENTS Stop: 04/15/17 22:53 Morphine Sulfate (Morphine Sulfate) 2 mg IVP Q4HR PRN PRN Reason: Severe Pain (7-10) Stop: 04/15/17 22:53 Naloxone HCl (Narcan) 0.4 mg IVP Q2MIN PRN PRN Reason: Opioid Reversal Stop: 04/15/17 22:53 Nicotine (Nicoderm) 21 mg TD DAILY [facility] PRN Reason: Protocol Stop: 04/15/17 23:01 Last Admin: 10/17/16 08:28 Dose: 21 mg Nitroglycerin (Nitroglycerin) 0.4 mg SL Q5MIN PRN PRN Reason: Chest Pain Stop: 04/15/17 19:44 Last Admin: 10/14/16 19:51 Dose: 0.4 mg Omeprazole (Prilosec) 20 mg PO DAILY@0630 [facility] PRN Reason: Protocol Stop: 04/16/17 06:31 Last Admin: 10/17/16 06:55 Dose: 20 mg Oxycodone HCl (Roxicodone) 5 mg PO Q6HR PRN PRN Reason: Moderate Pain (4-6) Stop: 04/15/17 22:53 Prednisone (Prednisone) 40 mg PO DAILY [facility] Stop: 04/16/17 09:01 Last Admin: 10/17/16 08:30 Dose: 40 mg Promethazine HCl (Phenergan) 12.5 mg IVP Q6HR PRN PRN Reason: Nausea And Vomiting Stop: 04/15/17 22:53 Transfer Discharge Sum: Data Procedures and tests throughout hospitalization: Pending Orders 10/15/16 09:49 Admit as Inpatient Routine 10/15/16 16:39 Intake and Output, Strict [RC] Q4H Measure weight [RC] .DAILY Ipratropium/Albuterol Neb [Duoneb] 3 ml IH [id number] PRN 10/15/16 16:45 Consult to Gastroenterology [CONS] Routine 10/15/16 17:00 Furosemide [Lasix] 40 mg IVP BIDDIURETIC Levofloxacin 750 MG/150 ML [Levaquin 750mg/150 mL] 750 mg in 150 ml IVPB DAILY 10/15/16 17:17 Culture,Blood [BC] Stat 10/16/16 08:43 AFP Tumor Marker Non- Routine BINA IgG TANI rflx IFA Routine [id number] Routine Ceruloplasmin Routine F-Actin IgG Reflex Sm Muscle Routine MPO/PR3 (ANCA) Antibodies Routine Mitochondrial M2 Antibody, IgG Routine 10/16/16 09:00 Losartan [Cozaar] 50 mg PO DAILY 10/16/16 10:48 Cardiac Cath Site Preparation Routine Oxygen via nasal cannula Nasal Cannula 2 lpm 10/16/16 14:00 Vancomycin [Vancocin] 1,000 mg D5% in Water [Dextrose 5%] 250 ml IVPB Q12H 10/16/16 17:08 Bed rest w/bathroom privileges [RC] .ONCE Communication order [RC] ONCE Consult to Cardiac Rehabilitation-Phase1 [CONS] Routine Advance Diet as Tolerated Routine 10/16/16 17:09 Consult to Cardiothoracic Surgery [CONS] Routine 10/16/16 Dinner Cardiac Diet 10/17/16 09:00 Enoxaparin [Lovenox] 40 mg SQ DAILY 10/18/16 09:00 Metoprolol XL (24 HR) Succ [Toprol XL] 50 mg PO DAILY - Impressions ITS Impressions Abdomen/Pelvis CT 10/15/16 14:03 IMPRESSION: Mild caliectasis to upper and to a lesser extent lower poles of right kidney without obvious etiology. Colonic diverticulosis without evidence for diverticulitis. Duodenal diverticulum. Trace ascites. There is also mild degree of nonspecific stranding and fluid in the retroperitoneum to include in the extraperitoneal spaces of the pelvis to include presacral space. No focal fluid collections. Extensive atherosclerosis. D/ / 10/15/2016 15:12:59 Titus Murrell MD / Sandrita Tucker Interpreting Provider: Titus Murrell MD Chest CTA 10/15/16 14:30 IMPRESSION: No pulmonary emboli are identified. Small right pleural effusion, with right lower lobe and upper lobe airspace disease which could represent atelectasis or pneumonia. Diffuse apical predominant mild emphysematous changes. Sequela of remote granulomatous process is also identified. Cardiomegaly, with atherosclerotic disease and heavy coronary artery involvement. Nonspecific sub- carinal lymphadenopathy which may be reactive. D/ / Deandre Agosto MD / Deandre Agosto MD Interpreting Provider: Deandre Agosto MD Liver Ultrasound 10/16/16 20:30 IMPRESSION: Normal to slight increase in hepatic echogenicity. No focal hepatic abnormality. Sludge within the gallbladder. No biliary dilatation and absent sonographic Fiore's sign. D/ / 10/16/2016 22:21:26 Deandre Browne MD / rene Interpreting Provider: Deandre Browne MD Transfer Discharge Sum: Prov Date of admission: 10/15/16 09:40 Primary care physician: Satish Collins MD Consults: 10/15/16 16:45 Consult to Gastroenterology [CONS] Routine Consulting Provider: Gastroenterology Kaylee Reason for Consult: elevated LFTs Call Completed: Yes 10/16/16 17:08 Consult to Cardiac Rehabilitation-Phase1 [CONS] Routine Comment: Reason for Consult: post op cath Call Completed: Yes 10/16/16 17:09 Consult to Cardiothoracic Surgery [CONS] Routine Consulting Provider: Cardiothoracic Surgery Kaylee Reason for Consult: cabg Call Completed: Yes Attending physician on discharge: Dina Marin Discharging clinician: Dina Marin Anticipated date of transfer: 10/17/16 Receiving physician/facility: [facility] Transfer Discharge Sum: A/P - Plan Cognitive capacity at transfer: AAO x 3 Functional capacity at transfer: independent ambulation Overall status at transfer: patient is back to baseline Disposition: Transfer Other Transfer Discharge Sum: Hosp Hospital course: Mr. Mccray is a 51 year old male with history of tobacco abuse who was admitted for management of acute respiratory distress and concern for CHF. Patient was newly diagnosed with CHF during this hospitalization and was found to have EF of 25% on 2D echo. He underwent LHC for further evaluation which reported of triple vessel disease with EF of 15-20%. As per cardiology and cardiothoracic surgery, transfer to [facility] was recommended for further management. Patient is a high risk and will need high risk angioplasty. Dr. Blair at [facility] has accepted the patient and he will be transferred to [facility] today. Patient is also currently being treated for COPD exacerbation with systemic steroids. - Time Spent with Patient Total time spent providing and/or coordinating transfer services: Greater than 30 minutes Transfer Discharge Sum: Exam - Constitutional Vitals: Vital Signs Temp Pulse Resp BP Pulse Ox 10/17/16 11:45 97.2 F L 83 19 109/88 94 10/17/16 11:11 85 10/17/16 11:08 16 96 10/17/16 08:20 97.6 F 90 18 121/97 97 10/17/16 04:46 89 17 95 10/17/16 04:14 16 93 10/17/16 03:55 98.5 F 90 17 118/82 95 10/17/16 00:31 97.7 F 85 16 112/89 98 10/17/16 00:20 82 16 98 10/16/16 20:57 88 16 97 10/16/16 19:17 97.8 F 86 16 122/87 97 10/16/16 19:00 89 126/93 94 10/16/16 18:30 87 117/93 10/16/16 18:15 89 111/85 94 10/16/16 18:00 84 114/91 10/16/16 17:45 98 110/84 93 10/16/16 17:30 84 117/92 96 10/16/16 15:30 88 10/16/16 15:21 97.4 F L 88 16 103/82 99 Intake and Output 10/16/16 10/17/16 10/17/16 23:59 07:59 15:59 Intake Total 240 / 240 850 / 850 390 / 390 Output Total 350 / 350 425 / 425 400 / 400 Balance -110 / -110 425 / 425 -10 / -10 Intake: IV Fluids 250 / 250 150 / 150 Levaquin 750mg/150 mL 750 150 / 150 mg In 150 ml @ 100 mls/ hr IVPB DAILY [facility] Rx#: [id number] Vancocin 1,000 MG In 250 / 250 Dextrose 5% 250 ML @ 167 mls/hr IVPB Q12H [facility] Rx#: [id number] Oral 240 / 240 600 / 600 240 / 240 Output: Urine 350 / 350 425 / 425 400 / 400 Other: Meal Dinner Breakfast Percent of Meal Consumed 100% 10% Weight 70.2 kg Patient Weight 10/17/16 23:59 Weight 70.2 kg General appearance: no acute distress - Head Head exam: Present: atraumatic, normocephalic - Eye Eye exam: Present: scleral icterus, conjuntiva pink - Respiratory Respiratory exam: Present: CTAB. Absent: respiratory distress, wheezes - Cardiovascular Cardiovascular exam: Present: RRR, +S1, +S2 - GI/Abdominal GI/Abdominal exam: Present: normal bowel sounds, soft. Absent: tenderness - Extremities Exam Extremities exam: Present: normal inspection. Absent: calf tenderness, pedal edema, tenderness - Neurological Exam Neurological exam: Present: oriented X3
[2016-10-17] MEDS ORDERED: Aminoglycoside Consult 1 EACH MC ONE (14:59)
[2016-10-18 07:32] LABS: AFP Tumor Marker Non-Pregnant 4 ng/mL (0-9); Alpha-1-Antitrypsin 192 mg/dL (90-200)
[2016-10-18 07:36] LABS: ANA IgG by ELISA NONE DETECTED (None Detected)
[2016-10-18] MEDS ORDERED: Metoprolol XL (24 HR) Succ 50 MG TAB.ER.24H PO SCH (09:00)
[2016-10-21 07:38] LABS: Ceruloplasmin 46 mg/dL (17-54); F-Actin (sm muscle) Ab IgG 8 Units (0-19); Myeloperoxidase Ab 0 AU/mL (0-19); Serine Protease-3 Antibody 0 AU/mL (0-19)
== END 2016-10-17 15:00 | disposition other institution (70) | DRG 280 ==
LOC: 2NNU 17:54 → EMEROO 17:54 → SUATTDRO 21:39 → 2NNU 10-15 00:01
PROVIDERS: ADMIT Internal Medicine; ATTEND Internal Medicine

== ENCOUNTER 2020-08-05 23:09 | Inpatient (IN) ==
[2020-08-05 23:46] LABS: Basophils # 0.1 K/mcL (0.0-0.2); Basophils % 0.9 %; Eosinophils # 0.4 K/mcL (0.0-0.6); Eosinophils % 4.6 %; Hematocrit 29.1 % (37.5-50.1); Hemoglobin 10.2 g/dL (12.9-16.9); Immature Granulocytes % 0.9 % (0-4); Lymphocytes # 2.6 K/mcL (0.6-4.6); Lymphocytes % 33.4 %; Mean Corpuscular HGB Conc 35.1 g/dL (31.6-35.5); Mean Corpuscular Hemoglobin 32.5 pg (28.0-33.3); Mean Corpuscular Volume 92.7 fL (83.0-100.0); Mean Platelet Volume 9.1 fL (9.4-12.4); Monocytes # 0.6 K/mcL (0.0-1.3); Monocytes % 7.6 %; Neutrophils # 4.1 K/mcL (1.6-8.9); Platelet Count 190 K/mcL (140-400); Red Blood Count 3.14 M/mcL (4.19-5.50); Red Cell Distribution Width 12.2 % (11.5-14.5); Segmented Neutrophils % 52.6 %; White Blood Count 7.8 K/mcL (4.3-11.1)
[2020-08-05 23:48] LABS: Prothrombin Time 11.4 Seconds (9.4-12.1)
[2020-08-05 23:51] LABS: Activated Partial Thrombo Time 23.9 Seconds (26.0-36.0)
[2020-08-06 00:06] LABS: Ethanol 64 mg/dL (Less than 10); Troponin I < 0.03 ng/mL (< 0.04)
[2020-08-06] MEDS ORDERED: 0.9 % Sodium Chloride 500 ML IVC ONE (00:52)
[2020-08-06] MEDS ORDERED: 0.9 % Sodium Chloride 500 ML ONE (00:53)
[2020-08-06] MEDS ORDERED: Calcium Gluconate 1,000 MG/10 ML VIAL IVP STA (00:55)
[2020-08-06] MEDS ORDERED: Calcium Gluconate 1gm/50mL 1 GM/50 ML BAG IVPB ONE (01:00)
[2020-08-06] MEDS ORDERED: Azithromycin 500 MG in 0.9 % Sodium Chloride 250 ML IVPB ONE (01:09)
[2020-08-06] MEDS ORDERED: cefTRIAXone 1,000 MG in 0.9 % Sodium Chloride Mini Bag 100 ML IVPB ONE (01:09)
[2020-08-06] MEDS ORDERED: Ondansetron 4 MG/2 ML VIAL IVP ONE (01:21)
[2020-08-06] MEDS ORDERED: Ondansetron 4 MG/2 ML VIAL ONE (01:21)
[2020-08-06 01:23] LABS: Albumin 3.4 g/dL (3.5-5.7); Albumin/Globulin Ratio 1.3 (1.1-2.2); Bilirubin,Direct 0.1 mg/dL (0.0-0.2); Bilirubin,Indirect 0.3 mg/dL (0.0-1.0); Bilirubin,Total 0.4 mg/dL (0.3-1.0); Calcium 9.4 mg/dL (8.6-10.3); Globulin 2.6 g/dL (2.4-3.5); Potassium 3.3 mEq/L (3.5-5.1)
[2020-08-06] MEDS ORDERED: Ondansetron ODT 4 MG TAB.RAPDIS SL PRN (02:22)
[2020-08-06] MEDS ORDERED: Naloxone 0.4 MG/ML INJ IVP PRN (02:22)
[2020-08-06 02:42] LABS: Bacteria,Urine Few per hpf (None-Few); Bilirubin,Urine Negative (Negative); Blood,Urine Negative (Negative); Budding Yeast,Urine Few per hpf (None Seen); Clarity,Urine Turbid (Clear); Color,Urine Light-Yellow (Yellow); Glucose,Urine (UA) Normal (Normal); Hyaline Casts,Urine Moderate per lpf (None Seen); Ketones,Urine Negative (Negative); Leukocyte Esterase,Urine Large (Negative); Mucus,Urine Few per lpf (None-Few); Nitrite,Urine Negative (Negative); Protein,Urine Negative (Neg-Trace); Specific Gravity,Urine 1.007 (1.010-1.025); Urobilinogen,Urine Normal (Normal); WBC,Urine 15-30 per hpf (0-3)
[2020-08-06 02:47] LABS: Amphetamine Screen,Urine Negative ng/mL (Cutoff=1000); Barbiturate Screen,Urine Negative ng/mL (Cutoff=200); Benzodiazepines Screen,Urine Negative ng/mL (Cutoff=200); Cannabinoid Screen,Urine Negative ng/mL (Cutoff = 50); Cocaine Screen,Urine Negative ng/mL (Cutoff= 300); Opiate Screen,Urine Negative ng/mL (Cutoff=300); Phencyclidine Screen,Urine Negative ng/mL (Cutoff=25)
[2020-08-06 03:11] LABS: Creatinine,Urine 88 mg/dL; Sodium, Urine < 10.0 mEq/L
[2020-08-06] MEDS ORDERED: 0.9 % Sodium Chloride 1,000 ML IVC ONE (03:25)
[2020-08-06 03:28] LABS: Hematocrit 27.8 % (37.5-50.1); Hemoglobin 9.6 g/dL (12.9-16.9); Mean Corpuscular HGB Conc 34.5 g/dL (31.6-35.5); Mean Corpuscular Hemoglobin 31.9 pg (28.0-33.3); Mean Corpuscular Volume 92.4 fL (83.0-100.0); Mean Platelet Volume 8.7 fL (9.4-12.4); Platelet Count 173 K/mcL (140-400); Red Blood Count 3.01 M/mcL (4.19-5.50); Red Cell Distribution Width 12.1 % (11.5-14.5); White Blood Count 7.5 K/mcL (4.3-11.1)
[2020-08-06] MEDS ORDERED: 0.9 % Sodium Chloride 1,000 ML ONE (03:32)
[2020-08-06 03:46] LABS: Adenovirus Not Detected (Not Detect); Bordetella Pertussis Not Detected (Not Detect); Chlamydophila pneumoniae Not Detected (Not Detect); Coronavirus 229E Not Detected (Not Detect); Coronavirus HKU1 Not Detected (Not Detect); Coronavirus NL63 Not Detected (Not Detect); Coronavirus OC43 Not Detected (Not Detect); Human Metapneumovirus Not Detected (Not Detect); Human Rhinovirus/Enterovirus Not Detected (Not Detect); Influenza A Subtype 2009 H1 Not Detected (Not Detect); Influenza B Not Detected (Not Detect); Mycoplasma pneumoniae Not Detected (Not Detect); Parainfluenza Virus 1 Not Detected (Not Detect); Parainfluenza Virus 2 Not Detected (Not Detect); Parainfluenza Virus 3 Not Detected (Not Detect); Parainfluenza Virus 4 Not Detected (Not Detect); Respiratory Syncytial Virus Not Detected (Not Detect); SARS-CoV-2 Not Detected (Not Detect)
[2020-08-06 03:53] LABS: BUN/Creatinine Ratio 20 (6-26); Blood Urea Nitrogen 41 mg/dL (6-20); Carbon Dioxide 14 mEq/L (23-29); Chloride 92 mEq/L (98-107); Glucose 82 mg/dL (70-105); Magnesium 1.7 mg/dL (1.6-2.6); Osmolality,Calculated 253 (280-300); Phosphorous 4.5 mg/dL (2.7-4.5); Potassium 3.3 mEq/L (3.5-5.1); Sodium 117 mEq/L (136-145); eGFR For African Americans 41 (> 60); eGFR For Non-African Americans 34 (> 60)
[2020-08-06 03:56] LABS: Troponin I < 0.03 ng/mL (< 0.04)
[2020-08-06] MEDS: *HR* Heparin 5,000 UNIT/ML VIAL SQ SCH ×2 (04:41→16:58)
[2020-08-06] MEDS: Azithromycin 500 MG in 0.9 % Sodium Chloride 250 ML IVPB SCH (04:47)
[2020-08-06] MEDS ORDERED: 0.9 % Sodium Chloride 1,000 ML IV ONE (05:30)
[2020-08-06 06:25] LABS: VBG HCO3 11 mEq/L (21-27); VBG PCO2 29 mmHg (41-51); VBG PO2 56 mmHg (25-50)
[2020-08-06 06:41] LABS: Calcium 7.4 mg/dL (8.6-10.3)
[2020-08-06 06:42] LABS: Acetaminophen < 10 mcg/mL (10-20); Salicylate < 2.5 mg/dL (15.0-30.0)
[2020-08-06 06:56] LABS: Protein/Creatinine Ratio,Urine 0.13 mg/mg (0.00-0.20)
[2020-08-06 07:35] LABS: ABG Base Excess -12 mEq/L (-2 to 3); ABG HCO3 13 mEq/L (21-27); ABG Oxygen Saturation 95 % (95-98); ABG PCO2 26 mmHg (35-45); ABG PH 7.31 pH Units (7.32-7.45); ABG PO2 80 mmHg (85-104); ABG TCO2 14 mEq/L (20-26)
[2020-08-06] MEDS: Aspirin Enteric Coated 81 MG Tablet PO SCH (07:51)
[2020-08-06] MEDS: Thiamine (B-1) 100 MG TABLET PO SCH (07:51)
[2020-08-06] MEDS: cilostazoL 100 MG TABLET PO SCH ×2 (07:51→19:52)
[2020-08-06] MEDS: Folic Acid 1 MG in 0.9 % Sodium Chloride 50 ML IVPB SCH (08:04)
[2020-08-06] MEDS ORDERED: Potassium Chloride 40 MEQ in D5% in 0.45% NACL 1,000 ML IVC SCH ×2 (08:15→13:30)
[2020-08-06 11:00] LABS: Protein/Creatinine Ratio,Urine 0.51 mg/mg (0.00-0.20)
[2020-08-06 11:01] LABS: Bilirubin,Urine Negative (Negative); Blood,Urine Negative (Negative); Clarity,Urine Clear (Clear); Color,Urine Light-Yellow (Yellow); Glucose,Urine (UA) >=1000 mg/dL (Normal); Hyaline Casts,Urine Few per lpf (None Seen); Ketones,Urine Negative (Negative); Leukocyte Esterase,Urine Negative (Negative); Nitrite,Urine Negative (Negative); PH,Urine 6.5 pH Units (5.0-8.0); Protein,Urine Trace mg/dL (Neg-Trace); RBC,Urine 0-3 per hpf (0-3); Specific Gravity,Urine 1.017 (1.010-1.025); Urobilinogen,Urine Normal (Normal); WBC,Urine 0-3 per hpf (0-3)
[2020-08-06 11:47] LABS: Hepatitis B Surface Antigen Nonreactive (Nonreactive)
[2020-08-06 11:50] LABS: Potassium 4.1 mEq/L (3.5-5.1); Thyroid Stimulating Hormone 0.92 mcIU/mL (0.340-5.600); Uric Acid 8.2 mg/dL (2.3-7.6)
[2020-08-06 12:15] LABS: Hepatitis C Virus Antibody Nonreactive (Nonreactive)
[2020-08-06 12:17] LABS: Hepatitis A Antibody IgM Nonreactive (Nonreactive); Hepatitis B Core IgM Nonreactive (Nonreactive)
[2020-08-06] MEDS: Albumin 25% 25gram/100mL 25 GM/100 ML IV.SOLN IVC SCH ×4 (12:27→16:58)
[2020-08-06 13:07] LABS: Calcium 8.2 mg/dL (8.6-10.3); Potassium 4.3 mEq/L (3.5-5.1)
[2020-08-06] MEDS ORDERED: 0.9 % Sodium Chloride 1,000 ML IVC SCH (13:45)
[2020-08-06] MEDS ORDERED: D5% in 0.45% NACL 1,000 ML IVC SCH (17:30)
[2020-08-06] MEDS: Tiotropium 10 INH DOSE IH SCH (20:58)
[2020-08-07] MEDS: cefTRIAXone 2,000 MG in Water for inj. (sterile) 20 ML IVP SCH (00:54)
[2020-08-07 01:23] LABS: Basophils % 0.6 %; Eosinophils # 0.2 K/mcL (0.0-0.6); Eosinophils % 2.2 %; Hematocrit 23.9 % (37.5-50.1); Immature Granulocytes % 0.6 % (0-4); Lymphocytes # 1.3 K/mcL (0.6-4.6); Lymphocytes % 17.7 %; Mean Corpuscular HGB Conc 33.1 g/dL (31.6-35.5); Mean Corpuscular Hemoglobin 32.4 pg (28.0-33.3); Mean Platelet Volume 8.9 fL (9.4-12.4); Monocytes # 0.4 K/mcL (0.0-1.3); Monocytes % 5.4 %; Neutrophils # 5.3 K/mcL (1.6-8.9); Platelet Count 150 K/mcL (140-400); Red Blood Count 2.44 M/mcL (4.19-5.50); Red Cell Distribution Width 12.4 % (11.5-14.5); Segmented Neutrophils % 73.5 %; White Blood Count 7.2 K/mcL (4.3-11.1)
[2020-08-07 01:24] LABS: Hemoglobin 7.9 g/dL (12.9-16.9)
[2020-08-07 01:34] LABS: Calcium 8.4 mg/dL (8.6-10.3); Potassium 4.5 mEq/L (3.5-5.1)
[2020-08-07] MEDS: Azithromycin 500 MG in 0.9 % Sodium Chloride 250 ML IVPB SCH (05:00)
[2020-08-07] MEDS: *HR* Heparin 5,000 UNIT/ML VIAL SQ SCH ×2 (05:01→17:21)
[2020-08-07] MEDS: Tiotropium 10 INH DOSE IH SCH (07:48)
[2020-08-07] MEDS: Aspirin Enteric Coated 81 MG Tablet PO SCH (07:54)
[2020-08-07] MEDS: Thiamine (B-1) 100 MG TABLET PO SCH (07:54)
[2020-08-07] MEDS: cilostazoL 100 MG TABLET PO SCH ×2 (07:55→21:34)
[2020-08-07] MEDS: Folic Acid 1 MG in 0.9 % Sodium Chloride 50 ML IVPB SCH (08:00)
[2020-08-07] MEDS ORDERED: Perflutren Lipid Microsphere 1.3 ML in 0.9 % Sodium Chloride 8.7 ML IVP PRN (12:45)
[2020-08-08 00:50] LABS: Basophils # 0.1 K/mcL (0.0-0.2); Eosinophils # 0.2 K/mcL (0.0-0.6); Eosinophils % 2.6 %; Hematocrit 25.9 % (37.5-50.1); Hemoglobin 8.4 g/dL (12.9-16.9); Immature Granulocytes % 0.5 % (0-4); Lymphocytes # 1.5 K/mcL (0.6-4.6); Mean Corpuscular HGB Conc 32.4 g/dL (31.6-35.5); Mean Corpuscular Hemoglobin 32.1 pg (28.0-33.3); Mean Corpuscular Volume 98.9 fL (83.0-100.0); Mean Platelet Volume 8.8 fL (9.4-12.4); Monocytes # 0.4 K/mcL (0.0-1.3); Neutrophils # 5.6 K/mcL (1.6-8.9); Platelet Count 166 K/mcL (140-400); Red Blood Count 2.62 M/mcL (4.19-5.50); Red Cell Distribution Width 13.2 % (11.5-14.5); Segmented Neutrophils % 71.9 %; White Blood Count 7.8 K/mcL (4.3-11.1)
[2020-08-08 01:13] LABS: % Iron Saturation 24 % (20-55); BUN/Creatinine Ratio 15 (6-26); Blood Urea Nitrogen 14 mg/dL (6-20); Calcium 8.7 mg/dL (8.6-10.3); Carbon Dioxide 12 mEq/L (23-29); Chloride 113 mEq/L (98-107); Glucose 138 mg/dL (70-105); Iron 55 mcg/dL (65-175); Osmolality,Calculated 279 (280-300); Potassium 3.9 mEq/L (3.5-5.1); Sodium 133 mEq/L (136-145); Transferrin 167 mg/dL (203-362); eGFR For African Americans > 60 (> 60); eGFR For Non-African Americans > 60 (> 60)
[2020-08-08] MEDS ORDERED: *HR* Metoprolol 5 MG/5 ML VIAL IVP ONE (01:28)
[2020-08-08 01:29] LABS: Ferritin 292 ng/mL (20-250)
[2020-08-08 01:35] LABS: Folate 10.1 ng/mL (3.0-16.0)
[2020-08-08] MEDS: cefTRIAXone 2,000 MG in Water for inj. (sterile) 20 ML IVP SCH (01:44)
[2020-08-08] MEDS: Azithromycin 500 MG in 0.9 % Sodium Chloride 250 ML IVPB SCH (04:55)
[2020-08-08] MEDS: *HR* Heparin 5,000 UNIT/ML VIAL SQ SCH ×2 (04:56→18:17)
[2020-08-08] MEDS: Tiotropium 10 INH DOSE IH SCH (07:48)
[2020-08-08] MEDS: Aspirin Enteric Coated 81 MG Tablet PO SCH (08:30)
[2020-08-08] MEDS: cilostazoL 100 MG TABLET PO SCH ×2 (08:30→19:48)
[2020-08-08] MEDS: Thiamine (B-1) 100 MG TABLET PO SCH (08:30)
[2020-08-08] MEDS: Folic Acid 1 MG in 0.9 % Sodium Chloride 50 ML IVPB SCH (08:30)
[2020-08-09 01:40] LABS: Basophils # 0.1 K/mcL (0.0-0.2); Basophils % 1.1 %; Eosinophils # 0.4 K/mcL (0.0-0.6); Eosinophils % 4.3 %; Hematocrit 22.4 % (37.5-50.1); Hemoglobin 7.4 g/dL (12.9-16.9); Immature Granulocytes % 0.2 % (0-4); Lymphocytes # 1.7 K/mcL (0.6-4.6); Lymphocytes % 20.5 %; Mean Corpuscular Hemoglobin 32.5 pg (28.0-33.3); Mean Corpuscular Volume 98.2 fL (83.0-100.0); Mean Platelet Volume 8.6 fL (9.4-12.4); Monocytes # 0.5 K/mcL (0.0-1.3); Monocytes % 6.3 %; Neutrophils # 5.5 K/mcL (1.6-8.9); Platelet Count 129 K/mcL (140-400); Red Blood Count 2.28 M/mcL (4.19-5.50); Red Cell Distribution Width 13.3 % (11.5-14.5); Segmented Neutrophils % 67.6 %; White Blood Count 8.1 K/mcL (4.3-11.1)
[2020-08-09 02:02] LABS: BUN/Creatinine Ratio 10 (6-26); Blood Urea Nitrogen 9 mg/dL (6-20); Calcium 8.2 mg/dL (8.6-10.3); Carbon Dioxide 14 mEq/L (23-29); Chloride 115 mEq/L (98-107); Glucose 82 mg/dL (70-105); Osmolality,Calculated 276 (280-300); Potassium 4.3 mEq/L (3.5-5.1); Sodium 134 mEq/L (136-145); eGFR For African Americans > 60 (> 60); eGFR For Non-African Americans > 60 (> 60)
[2020-08-09] MEDS: cefTRIAXone 2,000 MG in Water for inj. (sterile) 20 ML IVP SCH (02:59)
[2020-08-09] MEDS: *HR* Heparin 5,000 UNIT/ML VIAL SQ SCH ×2 (05:35→17:53)
[2020-08-09] MEDS: Azithromycin 500 MG in 0.9 % Sodium Chloride 250 ML IVPB SCH (05:36)
[2020-08-09 06:21] LABS: Hemoglobin 7.3 g/dL (12.9-16.9); Mean Corpuscular HGB Conc 33.2 g/dL (31.6-35.5); Mean Corpuscular Hemoglobin 32.6 pg (28.0-33.3); Mean Corpuscular Volume 98.2 fL (83.0-100.0); Mean Platelet Volume 8.7 fL (9.4-12.4); Platelet Count 129 K/mcL (140-400); Red Blood Count 2.24 M/mcL (4.19-5.50); Red Cell Distribution Width 13.3 % (11.5-14.5)
[2020-08-09] MEDS: Aspirin Enteric Coated 81 MG Tablet PO SCH (08:15)
[2020-08-09] MEDS: cilostazoL 100 MG TABLET PO SCH ×2 (08:15→20:54)
[2020-08-09] MEDS: Thiamine (B-1) 100 MG TABLET PO SCH (08:15)
[2020-08-09] MEDS: Tiotropium 10 INH DOSE IH SCH (08:17)
[2020-08-09] MEDS: Piperacillin/Tazobactam 3.375 GM in 0.9 % Sodium Chloride Mini Bag 100 ML IVPB SCH ×2 (16:33→23:29)
[2020-08-10 02:09] LABS: Basophils # 0.1 K/mcL (0.0-0.2); Basophils % 0.9 %; Eosinophils # 0.5 K/mcL (0.0-0.6); Eosinophils % 5.9 %; Hematocrit 24.2 % (37.5-50.1); Hemoglobin 7.7 g/dL (12.9-16.9); Immature Granulocytes % 0.5 % (0-4); Lymphocytes # 1.7 K/mcL (0.6-4.6); Lymphocytes % 21.3 %; Mean Corpuscular HGB Conc 31.8 g/dL (31.6-35.5); Mean Corpuscular Volume 100.4 fL (83.0-100.0); Mean Platelet Volume 8.9 fL (9.4-12.4); Monocytes # 0.5 K/mcL (0.0-1.3); Neutrophils # 5.1 K/mcL (1.6-8.9); Platelet Count 141 K/mcL (140-400); Red Blood Count 2.41 M/mcL (4.19-5.50); Red Cell Distribution Width 13.6 % (11.5-14.5); Segmented Neutrophils % 65.4 %; White Blood Count 7.8 K/mcL (4.3-11.1)
[2020-08-10 02:19] LABS: BUN/Creatinine Ratio 7 (6-26); Blood Urea Nitrogen 7 mg/dL (6-20); Carbon Dioxide 14 mEq/L (23-29); Chloride 115 mEq/L (98-107); Glucose 103 mg/dL (70-105); Osmolality,Calculated 282 (280-300); Potassium 3.9 mEq/L (3.5-5.1); Sodium 137 mEq/L (136-145); eGFR For African Americans > 60 (> 60); eGFR For Non-African Americans > 60 (> 60)
[2020-08-10] MEDS: *HR* Heparin 5,000 UNIT/ML VIAL SQ SCH (06:04)
[2020-08-10 09:50] LABS: Hematocrit 26.6 % (37.5-50.1); Hemoglobin 8.4 g/dL (12.9-16.9)
[2020-08-10] MEDS: Piperacillin/Tazobactam 3.375 GM in 0.9 % Sodium Chloride Mini Bag 100 ML IVPB SCH (10:04)
[2020-08-10] MEDS: cilostazoL 100 MG TABLET PO SCH (10:06)
[2020-08-10] MEDS: Thiamine (B-1) 100 MG TABLET PO SCH (10:06)
[2020-08-10] MEDS: Aspirin Enteric Coated 81 MG Tablet PO SCH (10:06)
[2020-08-10] MEDS: Tiotropium 10 INH DOSE IH SCH (10:51)
[2020-08-10 13:58] VITALS: BP 135/83
== END 2020-08-10 15:03 | disposition home or self-care (01) | DRG 871 ==
LOC: EMEROOARM 23:09 → 2NNU 08-06 02:08 → SUATTDRO 08-06 02:08 → 2NNU 08-06 04:00 → 3ANU 08-09 18:35
PROVIDERS: ADMIT Internal Medicine; ATTEND Family Medicine